=== PATIENT | female | born 2000 | race Caucasian/White ===

== ENCOUNTER 2022-11-01 10:24 | Inpatient (IN) ==
[2022-11-01] MEDS ORDERED: LIDOCAINE 1% LOCAL 20 ML VIAL INFIL PRN (10:31)
[2022-11-01] MEDS ORDERED: OXYTOCIN 30 UNITS/500 ML BAG IV PRN (10:31)
--- NOTE | 2022-11-01 10:39 | History & Physical Report ---
Date of Service November 01, 2022 Assessment & Plan Admission and Anticipated Discharge Date Admission Date: November 01, 2022 History of Present Illness Chief Complaint: induction of labor Primary Care Provider: NO PCP 22 F P0000 at 40+ weeks admitted for induction of labor. GBS is negative. Covid is pending. Allergies Allergy/AdvReac Type Severity Reaction Status Date / Time No Known Allergies Allergy Unverified 11/01/22 10:29 Home Medications Medication Instructions Recorded Confirmed Type 1 tab PO DAILY 11/01/22 11/01/22 History Patient History Medical History No known health problems Surgical History No history of previous surgery OB History primip [employer]SPORTATION [employer] History neg Review of Systems All systems reviewed & are unremarkable except as noted in HPI & below Physical Exam Constitutional: WD/WN, vitals as above Eyes: PERRL, conjunctivae normal, anicteric sclerae Respiratory: normal respiratory effort, lungs clear to auscultation Cardiovascular: RRR, no murmur, no edema Gastrointestinal (Abdomen): Inspection/Auscultation: abdomen normal to inspection Musculoskeletal: Extremities: extremities normal to inspection Skin: no rashes, warm and dry Neurologic: patellar DTR's 2+ bilat, sensation intact Psychiatric: A+Ox3, euthymic affect Genitourinary: OB Exam Monitor Tracing: + external FHT monitor used, + external uterine monitor used, + category I and + normal FHT variability Code Status & VTE Plan VTE Prophylaxis Plan VTE Prophylaxis will be ordered: No Monitoring External Monitor Cat 1
[2022-11-01] MEDS ORDERED: SODIUM CHLORIDE 0.9% 250 ML IV PRN (11:28)
[2022-11-01 11:49] LABS: Hematocrit (blood only) 35.5 % (37.0-47.0); Hemoglobin 12.5 g/dl (12.0-16.0); Mean Corpuscular Hemoglobin 30.4 pg (25.0-34.0); Mean Corpuscular Hgb Conc 35.2 g/dL (32.0-36.0); Mean Corpuscular Volume 86.4 fL (80.0-100.0); Mean Platelet Volume 11.4 fL (9.4-12.4); Platelet Count 178 K/uL (130-400); RDW Coefficient of Variation 13.3 % (11.5-14.5); RDW Standard Deviation 41.3 fL (36.4-46.3); Red Blood Count 4.11 M/uL (4.20-5.40); White Blood Count 13.21 K/ul (4.8-10.8)
[2022-11-01] MEDS ORDERED: DINOPROSTONE 10 MG INSERT PV ONE (11:58)
--- NOTE | 2022-11-01 11:58 | Labor Progress Brief Note ---
Date of Service November 01, 2022 Assessment & Plan Admission and Anticipated Discharge Date Admission Date: November 01, 2022 Physical Exam Genitourinary: Manual OB Exam: + cervical dilation fingertip, + cervical effacement 50% and + station high OB Exam Monitor Tracing: + external FHT monitor used, + external uterine monitor used, + category I and + normal FHT variability will plan for Cervidil for cervical ripening. Results & Data Vital Signs (Past 12 Hours) Vital Signs Temp Resp 11/01/22 10:35 37.3 C 20
--- NOTE | 2022-11-01 14:18 | Labor Progress Brief Note ---
Date of Service November 01, 2022 Assessment & Plan Admission and Anticipated Discharge Date Admission Date: November 01, 2022 Physical Exam Genitourinary: Manual OB Exam: + cervical dilation fingertip, + cervical effacement 50% and + station high Cervidil 10 mg placed Results & Data Vital Signs (Past 12 Hours) Vital Signs Temp Resp 11/01/22 10:35 37.3 C 20
[2022-11-01] MEDS ORDERED: BUTORPHANOL TARTRATE 1 MG/ML VIAL IV PRN (20:48)
[2022-11-02] MEDS ORDERED: miSOPROStoL 50 MCG TAB PO ONE (04:00)
[2022-11-02] MEDS ORDERED: FLUCONAZOLE 50 MG TAB PO ONE (07:54)
--- NOTE | 2022-11-02 08:07 | Obstetrical Progress Note ---
Date of Service November 02, 2022 Assessment & Plan Admission and Anticipated Discharge Date Admission Date: November 01, 2022 Subjective Patient is seen and examined IOL since yesterday for postdates Reviewed her PMH with her VE: 1/ 50%/ -3, s/p 1 Cervidil, ordered PO cytotec Bed side US: vertex, EFW 3300 gr FHR categ I No ctxs on monitor Discussed Ram bulb mechanical IOL and she accepted She was placed on Lithotomy position Cervix was cleaned with Betadine Ram was inserted, inflated with 40 ml sterile water, Attached to her medial thigh Continue to monitor closely Results & Data Vital Signs (Past 12 Hours) Vital Signs Temp Pulse Resp BP O2 Del Method 11/02/22 07:18 36.9 C 16 11/02/22 07:18 Room Air 11/02/22 07:14 75 132/87 11/02/22 04:02 37.0 C 69 18 137/80
[2022-11-02] MEDS ORDERED: OXYTOCIN 30 UNITS/500 ML BAG IV PRN (08:17)
[2022-11-02] MEDS: LACTATED RINGER'S 1,000 ML IV PRN ×4 (08:33→20:04)
[2022-11-02] MEDS ORDERED: ePHEDrine sulfate 50 MG/ML AMP ONE (14:50)
[2022-11-02] MEDS ORDERED: LIDOCAINE 2%/EPINEPHRINE 1:200,000 20 ML PF ONE (14:51)
[2022-11-02] MEDS ORDERED: fentaNYL citrate PF 100 MCG/2 ML VIAL ONE (14:51)
[2022-11-02] MEDS ORDERED: SODIUM CHLORIDE 0.9% PF INJ 10 ML VIAL ONE (14:51)
[2022-11-02] MEDS ORDERED: BUPIVACAINE 0.25% PF 30 ML VIAL ONE (14:51)
[2022-11-02] MEDS ORDERED: fentaNYL 2MCG/ML ROPIVACAINE 1.25MG/ML 100 ML BAG EPI ONE (14:52)
--- NOTE | 2022-11-02 16:39 | Obstetrical Progress Note ---
Date of Service November 02, 2022 Assessment & Plan Admission and Anticipated Discharge Date Admission Date: November 01, 2022 Subjective Patient is reevaluated. Ram came out at 1:30 PM, she received epidural for pain and comfortable now. heart rate category 1, Dent contractions every 2 to 3 minutes, Vaginal exam, cervix is 5 to 6 cm dilated, 70 to 80% effaced, large bulging bag, AROM, abundant clear fluid was obtained, head is at -1 station, Continue to monitor closely Results & Data Vital Signs (Past 12 Hours) Vital Signs Temp Pulse Resp BP Pulse Ox O2 Del Method 11/02/22 11:11 36.9 C 18 11/02/22 07:18 36.9 C 16 11/02/22 07:18 Room Air 11/02/22 16:33 82 98 11/02/22 16:28 83 98 11/02/22 15:05 36.9 C 11/02/22 16:23 71 98 11/02/22 16:18 96 H 99 11/02/22 16:15 99 H 131/71 11/02/22 16:13 81 98 11/02/22 16:11 90 140/79 11/02/22 16:00 18 11/02/22 16:00 18 11/02/22 16:08 88 98 11/02/22 16:06 85 134/80 11/02/22 16:03 85 98 11/02/22 16:01 88 144/73 H 11/02/22 15:58 86 98 11/02/22 15:55 92 H 144/67 H 11/02/22 15:53 98 11/02/22 15:53 89 11/02/22 15:53 90 139/73 11/02/22 15:51 87 140/71 11/02/22 15:49 93 H 155/81 H 11/02/22 15:48 92 H 97 11/02/22 15:47 85 139/66 11/02/22 15:45 83 142/68 H 11/02/22 15:43 96 11/02/22 15:43 85 11/02/22 15:43 85 152/75 H 11/02/22 15:41 90 155/82 H 11/02/22 15:38 86 98 11/02/22 15:39 83 157/93 H 11/02/22 15:37 82 146/73 H 11/02/22 15:33 79 98 11/02/22 15:28 82 98 11/02/22 15:23 82 97 11/02/22 15:18 84 99 11/02/22 15:13 86 97 11/02/22 15:00 20 11/02/22 15:00 20 11/02/22 15:11 81 93 11/02/22 15:08 78 98 11/02/22 15:03 78 98 11/02/22 14:58 78 99 11/02/22 14:55 75 139/63 11/02/22 14:53 70 98 11/02/22 14:54 75 137/82 11/02/22 14:30 18 11/02/22 14:30 18 11/02/22 14:48 81 98 11/02/22 14:00 16 11/02/22 14:00 16 11/02/22 13:30 16 11/02/22 13:30 16 11/02/22 13:00 20 11/02/22 13:00 20 11/02/22 13:54 70 130/60 11/02/22 12:54 70 143/71 H 11/02/22 12:31 18 11/02/22 12:31 18 11/02/22 12:01 18 11/02/22 12:01 18 11/02/22 11:54 80 134/76 11/02/22 10:01 18 11/02/22 10:01 18 11/02/22 10:31 16 11/02/22 10:31 16 11/02/22 11:31 18 11/02/22 11:31 18 11/02/22 10:54 78 128/90 11/02/22 09:56 74 136/87 11/02/22 08:53 69 144/80 H 11/02/22 07:14 75 132/87
--- NOTE | 2022-11-02 18:56 | Obstetrical Progress Note ---
Date of Service November 02, 2022 Assessment & Plan Admission and Anticipated Discharge Date Admission Date: November 01, 2022 Subjective Patient is reevaluated VE; 9/ 90%/ 0 FHR categ I Continue to monitor closely Anticipate Results & Data Vital Signs (Past 12 Hours) Vital Signs Temp Pulse Resp BP Pulse Ox O2 Del Method 11/02/22 11:11 36.9 C 18 11/02/22 07:18 36.9 C 16 11/02/22 07:18 Room Air 11/02/22 18:48 89 97 11/02/22 18:43 80 97 11/02/22 18:38 78 98 11/02/22 18:30 18 11/02/22 18:30 18 11/02/22 18:33 81 98 11/02/22 18:31 77 139/77 11/02/22 18:28 73 95 11/02/22 18:00 18 11/02/22 18:00 18 11/02/22 18:23 76 96 11/02/22 18:22 78 94 11/02/22 18:18 76 94 11/02/22 17:30 18 11/02/22 17:30 18 11/02/22 18:16 79 94 11/02/22 18:13 77 95 11/02/22 18:08 75 96 11/02/22 18:03 76 96 11/02/22 17:58 75 97 11/02/22 17:53 79 98 11/02/22 17:48 80 98 11/02/22 17:43 79 97 11/02/22 17:38 80 97 11/02/22 17:33 79 98 11/02/22 17:31 81 125/66 11/02/22 17:28 81 98 11/02/22 17:23 79 97 11/02/22 17:18 79 96 11/02/22 17:13 77 97 11/02/22 17:08 80 97 11/02/22 17:03 83 98 11/02/22 17:00 18 11/02/22 17:00 36.8 C 18 11/02/22 16:58 81 98 11/02/22 16:53 80 98 11/02/22 16:48 81 98 11/02/22 16:30 18 11/02/22 16:30 18 11/02/22 16:43 81 98 11/02/22 16:38 79 99 11/02/22 16:33 82 98 11/02/22 16:28 83 98 11/02/22 15:05 36.9 C 11/02/22 16:23 71 98 11/02/22 16:18 96 H 99 11/02/22 16:15 99 H 131/71 11/02/22 16:13 81 98 11/02/22 16:11 90 140/79 11/02/22 16:00 18 11/02/22 16:00 18 11/02/22 16:08 88 98 11/02/22 16:06 85 134/80 11/02/22 16:03 85 98 11/02/22 16:01 88 144/73 H 11/02/22 15:58 86 98 11/02/22 15:55 92 H 144/67 H 11/02/22 15:53 98 11/02/22 15:53 89 11/02/22 15:53 90 139/73 11/02/22 15:51 87 140/71 11/02/22 15:49 93 H 155/81 H 11/02/22 15:48 92 H 97 11/02/22 15:47 85 139/66 11/02/22 15:45 83 142/68 H 11/02/22 15:43 96 11/02/22 15:43 85 11/02/22 15:43 85 152/75 H 11/02/22 15:41 90 155/82 H 11/02/22 15:38 86 98 11/02/22 15:39 83 157/93 H 11/02/22 15:37 82 146/73 H 11/02/22 15:33 79 98 11/02/22 15:28 82 98 11/02/22 15:23 82 97 11/02/22 15:18 84 99 11/02/22 15:13 86 97 11/02/22 15:00 20 11/02/22 15:00 20 11/02/22 15:11 81 93 11/02/22 15:08 78 98 11/02/22 15:03 78 98 11/02/22 14:58 78 99 11/02/22 14:55 75 139/63 11/02/22 14:53 70 98 11/02/22 14:54 75 137/82 11/02/22 14:30 18 11/02/22 14:30 18 11/02/22 14:48 81 98 11/02/22 14:00 16 11/02/22 14:00 16 11/02/22 13:30 16 11/02/22 13:30 16 11/02/22 13:00 20 11/02/22 13:00 20 11/02/22 13:54 70 130/60 11/02/22 12:54 70 143/71 H 11/02/22 12:31 18 11/02/22 12:31 18 11/02/22 12:01 18 11/02/22 12:01 18 11/02/22 11:54 80 134/76 11/02/22 10:01 18 11/02/22 10:01 18 11/02/22 10:31 16 11/02/22 10:31 16 11/02/22 11:31 18 11/02/22 11:31 18 11/02/22 10:54 78 128/90 11/02/22 09:56 74 136/87 11/02/22 08:53 69 144/80 H 11/02/22 07:14 75 132/87
[2022-11-02] MEDS ORDERED: OR MISCELLANEOUS MED ONE (23:05)
--- NOTE | 2022-11-02 23:05 | Obstetrical Progress Note ---
Date of Service November 02, 2022 Assessment & Plan Admission and Anticipated Discharge Date Admission Date: November 01, 2022 Subjective Patient is reevaluated She does not feel any pain nor pressure FHR had been categ I VE: ant lip and very thin rim of cervix on right side, head is at +1 station, minimal change since last exam Increased pitocin to 16 miu/min Then FHR had deceleration to 100's for about 6 minutes despite lateral position change Oxytocin was stopped, IVF bolus started FHR came up to 130's Continue to monitor closely. Results & Data Vital Signs (Past 12 Hours) Vital Signs Temp Pulse Resp BP Pulse Ox 11/02/22 19:07 37.0 C 18 11/02/22 11:11 36.9 C 18 11/02/22 22:58 92 H 99 11/02/22 22:53 88 99 11/02/22 22:48 92 H 97 11/02/22 22:43 82 98 11/02/22 22:38 90 97 11/02/22 22:36 82 134/73 93 11/02/22 22:33 81 96 11/02/22 22:30 37.1 C 18 11/02/22 22:28 81 96 11/02/22 22:23 81 96 11/02/22 22:21 92 H 143/84 H 11/02/22 22:18 86 97 11/02/22 22:00 18 11/02/22 22:00 18 11/02/22 22:13 91 H 96 11/02/22 22:08 90 97 11/02/22 22:07 86 140/87 11/02/22 22:06 86 93 11/02/22 22:03 89 97 11/02/22 21:58 93 H 97 11/02/22 21:53 95 H 97 11/02/22 21:51 85 136/73 11/02/22 21:48 95 H 97 11/02/22 21:46 86 94 11/02/22 21:43 84 96 11/02/22 21:38 82 96 11/02/22 21:37 83 134/72 11/02/22 21:30 20 11/02/22 21:30 20 11/02/22 21:33 82 95 11/02/22 21:28 83 96 11/02/22 21:23 84 96 11/02/22 21:21 85 144/68 H 11/02/22 21:00 18 11/02/22 21:00 18 11/02/22 21:18 87 97 11/02/22 21:13 90 98 11/02/22 21:08 81 97 11/02/22 21:06 84 134/65 11/02/22 21:03 89 97 11/02/22 20:58 84 96 11/02/22 20:53 79 94 11/02/22 20:52 78 132/60 11/02/22 20:48 78 94 11/02/22 20:47 76 94 11/02/22 20:43 77 96 11/02/22 20:40 78 94 11/02/22 20:38 78 126/62 96 11/02/22 20:30 18 11/02/22 20:30 18 11/02/22 20:33 80 96 11/02/22 20:28 80 97 11/02/22 20:23 81 130/66 97 11/02/22 20:18 78 97 11/02/22 20:13 82 98 11/02/22 20:08 77 96 11/02/22 19:30 18 11/02/22 19:30 18 11/02/22 20:00 18 11/02/22 20:00 18 11/02/22 20:06 77 114/65 94 11/02/22 20:03 77 97 11/02/22 19:58 87 96 11/02/22 19:53 82 96 11/02/22 19:52 81 125/76 93 11/02/22 19:48 82 97 11/02/22 19:43 82 96 11/02/22 19:38 81 96 11/02/22 19:37 76 137/80 11/02/22 19:33 82 96 11/02/22 19:28 82 96 11/02/22 19:23 79 98 11/02/22 19:22 76 131/83 11/02/22 19:18 80 96 11/02/22 19:13 75 97 11/02/22 19:08 74 98 11/02/22 19:06 74 132/79 11/02/22 19:00 18 11/02/22 19:00 18 11/02/22 19:03 83 98 11/02/22 18:58 78 97 11/02/22 18:53 77 98 11/02/22 18:48 89 97 11/02/22 18:43 80 97 11/02/22 18:38 78 98 11/02/22 18:30 18 11/02/22 18:30 18 11/02/22 18:33 81 98 11/02/22 18:31 77 139/77 11/02/22 18:28 73 95 11/02/22 18:00 18 11/02/22 18:00 18 11/02/22 18:23 76 96 11/02/22 18:22 78 94 11/02/22 18:18 76 94 11/02/22 17:30 18 11/02/22 17:30 18 11/02/22 18:16 79 94 11/02/22 18:13 77 95 11/02/22 18:08 75 96 11/02/22 18:03 76 96 11/02/22 17:58 75 97 11/02/22 17:53 79 98 11/02/22 17:48 80 98 11/02/22 17:43 79 97 11/02/22 17:38 80 97 11/02/22 17:33 79 98 11/02/22 17:31 81 125/66 11/02/22 17:28 81 98 11/02/22 17:23 79 97 11/02/22 17:18 79 96 11/02/22 17:13 77 97 11/02/22 17:08 80 97 11/02/22 17:03 83 98 11/02/22 17:00 18 11/02/22 17:00 36.8 C 18 11/02/22 16:58 81 98 11/02/22 16:53 80 98 11/02/22 16:48 81 98 11/02/22 16:30 18 11/02/22 16:30 18 11/02/22 16:43 81 98 11/02/22 16:38 79 99 11/02/22 16:33 82 98 11/02/22 16:28 83 98 11/02/22 15:05 36.9 C 11/02/22 16:23 71 98 11/02/22 16:18 96 H 99 11/02/22 16:15 99 H 131/71 11/02/22 16:13 81 98 11/02/22 16:11 90 140/79 11/02/22 16:00 18 11/02/22 16:00 18 11/02/22 16:08 88 98 11/02/22 16:06 85 134/80 11/02/22 16:03 85 98 11/02/22 16:01 88 144/73 H 11/02/22 15:58 86 98 11/02/22 15:55 92 H 144/67 H 11/02/22 15:53 98 11/02/22 15:53 89 11/02/22 15:53 90 139/73 11/02/22 15:51 87 140/71 11/02/22 15:49 93 H 155/81 H 11/02/22 15:48 92 H 97 11/02/22 15:47 85 139/66 11/02/22 15:45 83 142/68 H 11/02/22 15:43 96 11/02/22 15:43 85 11/02/22 15:43 85 152/75 H 11/02/22 15:41 90 155/82 H 11/02/22 15:38 86 98 11/02/22 15:39 83 157/93 H 11/02/22 15:37 82 146/73 H 11/02/22 15:33 79 98 11/02/22 15:28 82 98 11/02/22 15:23 82 97 11/02/22 15:18 84 99 11/02/22 15:13 86 97 11/02/22 15:00 20 11/02/22 15:00 20 11/02/22 15:11 81 93 11/02/22 15:08 78 98 11/02/22 15:03 78 98 11/02/22 14:58 78 99 11/02/22 14:55 75 139/63 11/02/22 14:53 70 98 11/02/22 14:54 75 137/82 11/02/22 14:30 18 11/02/22 14:30 18 11/02/22 14:48 81 98 11/02/22 14:00 16 11/02/22 14:00 16 11/02/22 13:30 16 11/02/22 13:30 16 11/02/22 13:00 20 11/02/22 13:00 20 11/02/22 13:54 70 130/60 11/02/22 12:54 70 143/71 H 11/02/22 12:31 18 11/02/22 12:31 18 11/02/22 12:01 18 11/02/22 12:01 18 11/02/22 11:54 80 134/76 11/02/22 11:31 18 11/02/22 11:31 18
[2022-11-02] MEDS ORDERED: ePHEDrine sulfate 50 MG/ML AMP IV PRN (23:23)
[2022-11-02] MEDS ORDERED: NALOXONE HCL 0.4 MG/1 ML VIAL/CARP IV PRN (23:23)
[2022-11-02] MEDS ORDERED: NALOXONE HCL 1 MG in SODIUM CHLORIDE 0.9% 1000ML 1,000 ML IV PRN (23:23)
[2022-11-02] MEDS ORDERED: ONDANSETRON INJ 2 MG/ML 2 ML VIAL IV PRN (23:23)
[2022-11-02] MEDS ORDERED: NALBUPHINE HCL INJ 10 MG/ML AMP IV PRN (23:23)
[2022-11-02] MEDS ORDERED: diphenhydrAMINE 50 MG/ML VIAL IV PRN (23:23)
--- NOTE | 2022-11-02 23:27 | Anesthesiology Consultation ---
Date of Service November 02, 2022 Assessment & Plan Chart Review Chart Review: Patient NOT seen in Pre Admission Testing and Acceptable Risk for Labor Epidural Consults Requested none ASA ASA2 Proposed Anesthesia Anesthesia Type: Labor Epidural Risk / Benefits Reviewed With: PT / POA / Parent / Guardian, Accepts Plan and Informed Consent Obtained History Height/Weight Height: 5 ft 2 in Weight: 98.43 kg Allergies Allergy/AdvReac Type Severity Reaction Status Date / Time No Known Allergies Allergy Unverified 11/01/22 10:29 Medications Home Medications Medication Instructions Recorded Confirmed Last Taken 1 tab PO DAILY 11/01/22 11/01/22 10/31/22 20:00 Active Medications Generic Name Dose Route Start Last Admin Trade Name Freq PRN Reason Stop Dose Admin Butorphanol Tartrate 1 mg 11/01/22 20:48 11/02/22 13:41 Butorphanol Tartrate 1 Mg/Ml Vial IV 12/01/22 20:47 1 mg Q2R PRN Administration Pain Lactated Ringer's 1,000 mls @ 125 mls/hr 11/01/22 10:31 11/02/22 20:04 Lr IV 11/03/22 10:30 150 mls/hr .Q8H PRN Administration L&D Protocol Protocol Oxytocin 30 units in 500 mls @ 8 mls/hr 11/02/22 08:17 11/02/22 23:12 Pitocin IV 11/04/22 08:16 0.48 units/hr .Q24H PRN 8 mls/hr Labor Induction/Augmentation Titration Protocol 0.48 UNITS/HR Past Medical History Medical History No known health problems Exercise / Class Metabolic Activity II 4-5 Yardwork/Stairs/Walk up hill Past Surgical History Surgical History No history of previous surgery Past Anesthesia History No Hx of Anesthesia Complications and No Family Hx of Anesthesia Complications History of PONV No Hx of PONV and No Hx of Motion Sickness Social History Smoking Status: Current every day smoker tobacco type: cigarettes Smoking cigarettes per day: 8 STICKS OF CIGARETTES PER DAY. Do You Dip or Chew Tobacco: No Hx Alcohol Use: No Hx Substance Use: No substance use type: does not use Physical Exam Vital Signs Last Vital Signs Temp 37.1 C 11/02/22 22:30 Pulse 90 11/02/22 23:23 Resp 20 11/02/22 23:00 BP 138/73 11/02/22 23:21 Pulse Ox 97 11/02/22 23:23 O2 Del Method Room Air 11/02/22 07:18 ENMT Mouth: no dentition abnormality Thyromental Distance: > or= 3.5 Finger Breadths Mallampati Class: II Neck normal visual inspection Respiratory normal respiratory effort Auscultation: lungs clear to auscultation bilaterally Cardiovascular Rate/Rhythm: regular rate and regular rhythm Psychiatric Orientation: alert Testing Laboratory Results 11/01/22 11:15 Blood Type A Positive 11/01/22 11:15 Antibody Screen NEGATIVE 11/01/22 11:15
[2022-11-03] MEDS: fentaNYL 2MCG/ML ROPIVACAINE 1.25MG/ML 100 ML BAG EPI PRN ×2 (00:06→09:42)
[2022-11-03] MEDS ORDERED: MINERAL OIL 30 ML UDC ONE (01:27)
--- NOTE | 2022-11-03 01:44 | Obstetrical Progress Note ---
Date of Service November 03, 2022 Assessment & Plan Admission and Anticipated Discharge Date Admission Date: November 01, 2022 Subjective FHR was categ I and Oxytocin was started She started to feel pressure and some pain with contractions Contractions were spaced out earlier and now more regular every 2-3 min Has been pushing with good efforts Head is at +2 station, unable to tell OP or now Continue to monitor closely and pushing. Results & Data Vital Signs (Past 12 Hours) Vital Signs Temp Pulse Resp BP Pulse Ox 11/02/22 19:07 37.0 C 18 11/03/22 01:39 99 H 97 11/03/22 01:34 96 H 97 11/03/22 01:29 118 H 98 11/03/22 01:24 131 H 96 11/03/22 01:19 96 H 97 11/03/22 01:14 102 H 98 11/03/22 01:09 105 H 97 11/03/22 01:04 114 H 98 11/03/22 00:59 116 H 98 11/03/22 00:54 104 H 97 11/03/22 00:51 111 H 123/72 11/03/22 00:48 101 H 97 11/03/22 00:43 99 H 98 11/03/22 00:38 91 H 97 11/03/22 00:37 83 132/85 11/03/22 00:33 95 H 98 11/03/22 00:28 111 H 98 11/03/22 00:23 87 97 11/03/22 00:22 94 H 133/75 11/03/22 00:18 94 H 97 11/03/22 00:13 89 96 11/03/22 00:08 93 H 96 11/03/22 00:06 91 H 147/80 H 11/03/22 00:03 94 H 97 11/02/22 23:58 89 96 11/02/22 23:53 95 H 97 11/02/22 23:51 95 H 136/81 11/02/22 23:48 88 96 11/02/22 23:43 96 H 96 11/02/22 23:38 93 H 97 11/02/22 23:37 92 H 140/83 94 11/02/22 23:33 92 H 96 11/02/22 23:28 98 H 97 11/02/22 23:23 90 97 11/02/22 23:21 88 138/73 11/02/22 23:18 87 97 11/02/22 23:00 20 11/02/22 23:00 20 11/02/22 23:13 91 H 97 11/02/22 23:08 84 99 11/02/22 23:06 85 131/73 11/02/22 23:03 84 99 11/02/22 22:58 92 H 99 11/02/22 22:53 88 99 11/02/22 22:48 92 H 97 11/02/22 22:43 82 98 11/02/22 22:38 90 97 11/02/22 22:36 82 134/73 93 11/02/22 22:33 81 96 11/02/22 22:30 37.1 C 18 11/02/22 22:28 81 96 11/02/22 22:23 81 96 11/02/22 22:21 92 H 143/84 H 11/02/22 22:18 86 97 11/02/22 22:00 18 11/02/22 22:00 18 11/02/22 22:13 91 H 96 11/02/22 22:08 90 97 11/02/22 22:07 86 140/87 11/02/22 22:06 86 93 11/02/22 22:03 89 97 11/02/22 21:58 93 H 97 11/02/22 21:53 95 H 97 11/02/22 21:51 85 136/73 11/02/22 21:48 95 H 97 11/02/22 21:46 86 94 11/02/22 21:43 84 96 11/02/22 21:38 82 96 11/02/22 21:37 83 134/72 11/02/22 21:30 20 11/02/22 21:30 20 11/02/22 21:33 82 95 11/02/22 21:28 83 96 11/02/22 21:23 84 96 11/02/22 21:21 85 144/68 H 11/02/22 21:00 18 11/02/22 21:00 18 11/02/22 21:18 87 97 11/02/22 21:13 90 98 11/02/22 21:08 81 97 11/02/22 21:06 84 134/65 11/02/22 21:03 89 97 11/02/22 20:58 84 96 11/02/22 20:53 79 94 11/02/22 20:52 78 132/60 11/02/22 20:48 78 94 11/02/22 20:47 76 94 11/02/22 20:43 77 96 11/02/22 20:40 78 94 11/02/22 20:38 78 126/62 96 11/02/22 20:30 18 11/02/22 20:30 18 11/02/22 20:33 80 96 11/02/22 20:28 80 97 11/02/22 20:23 81 130/66 97 11/02/22 20:18 78 97 11/02/22 20:13 82 98 11/02/22 20:08 77 96 11/02/22 19:30 18 11/02/22 19:30 18 11/02/22 20:00 18 11/02/22 20:00 18 11/02/22 20:06 77 114/65 94 11/02/22 20:03 77 97 11/02/22 19:58 87 96 11/02/22 19:53 82 96 11/02/22 19:52 81 125/76 93 11/02/22 19:48 82 97 11/02/22 19:43 82 96 11/02/22 19:38 81 96 11/02/22 19:37 76 137/80 11/02/22 19:33 82 96 11/02/22 19:28 82 96 11/02/22 19:23 79 98 11/02/22 19:22 76 131/83 11/02/22 19:18 80 96 11/02/22 19:13 75 97 11/02/22 19:08 74 98 11/02/22 19:06 74 132/79 11/02/22 19:00 18 11/02/22 19:00 18 11/02/22 19:03 83 98 11/02/22 18:58 78 97 11/02/22 18:53 77 98 11/02/22 18:48 89 97 11/02/22 18:43 80 97 11/02/22 18:38 78 98 11/02/22 18:30 18 11/02/22 18:30 18 11/02/22 18:33 81 98 11/02/22 18:31 77 139/77 11/02/22 18:28 73 95 11/02/22 18:00 18 11/02/22 18:00 18 11/02/22 18:23 76 96 11/02/22 18:22 78 94 11/02/22 18:18 76 94 11/02/22 17:30 18 11/02/22 17:30 18 11/02/22 18:16 79 94 11/02/22 18:13 77 95 11/02/22 18:08 75 96 11/02/22 18:03 76 96 11/02/22 17:58 75 97 11/02/22 17:53 79 98 11/02/22 17:48 80 98 11/02/22 17:43 79 97 11/02/22 17:38 80 97 11/02/22 17:33 79 98 11/02/22 17:31 81 125/66 11/02/22 17:28 81 98 11/02/22 17:23 79 97 11/02/22 17:18 79 96 11/02/22 17:13 77 97 11/02/22 17:08 80 97 11/02/22 17:03 83 98 11/02/22 17:00 18 11/02/22 17:00 36.8 C 18 11/02/22 16:58 81 98 11/02/22 16:53 80 98 11/02/22 16:48 81 98 11/02/22 16:30 18 11/02/22 16:30 18 11/02/22 16:43 81 98 11/02/22 16:38 79 99 11/02/22 16:33 82 98 11/02/22 16:28 83 98 11/02/22 15:05 36.9 C 11/02/22 16:23 71 98 11/02/22 16:18 96 H 99 11/02/22 16:15 99 H 131/71 11/02/22 16:13 81 98 11/02/22 16:11 90 140/79 11/02/22 16:00 18 11/02/22 16:00 18 11/02/22 16:08 88 98 11/02/22 16:06 85 134/80 11/02/22 16:03 85 98 11/02/22 16:01 88 144/73 H 11/02/22 15:58 86 98 11/02/22 15:55 92 H 144/67 H 11/02/22 15:53 98 11/02/22 15:53 89 11/02/22 15:53 90 139/73 11/02/22 15:51 87 140/71 11/02/22 15:49 93 H 155/81 H 11/02/22 15:48 92 H 97 11/02/22 15:47 85 139/66 11/02/22 15:45 83 142/68 H 11/02/22 15:43 96 11/02/22 15:43 85 11/02/22 15:43 85 152/75 H 11/02/22 15:41 90 155/82 H 11/02/22 15:38 86 98 11/02/22 15:39 83 157/93 H 11/02/22 15:37 82 146/73 H 11/02/22 15:33 79 98 11/02/22 15:28 82 98 11/02/22 15:23 82 97 11/02/22 15:18 84 99 11/02/22 15:13 86 97 11/02/22 15:00 20 11/02/22 15:00 20 11/02/22 15:11 81 93 11/02/22 15:08 78 98 11/02/22 15:03 78 98 11/02/22 14:58 78 99 11/02/22 14:55 75 139/63 11/02/22 14:53 70 98 11/02/22 14:54 75 137/82 11/02/22 14:30 18 11/02/22 14:30 18 11/02/22 14:48 81 98 11/02/22 14:00 16 11/02/22 14:00 16 11/02/22 13:54 70 130/60
--- NOTE | 2022-11-03 02:28 | Obstetrical Progress Note ---
Date of Service November 03, 2022 Assessment & Plan Admission and Anticipated Discharge Date Admission Date: November 01, 2022 Subjective Patient is resting now, wanted to stop and take a nap and labor down. FHR categ I Continue to monitor closely Results & Data Vital Signs (Past 12 Hours) Vital Signs Temp Pulse Resp BP Pulse Ox 11/02/22 19:07 37.0 C 18 11/03/22 02:27 96 H 150/72 H 11/03/22 02:24 93 H 98 11/03/22 02:19 93 H 95 11/03/22 02:14 91 H 95 11/03/22 02:12 86 131/62 11/03/22 02:09 90 97 11/03/22 02:04 91 H 99 11/03/22 01:59 90 96 11/03/22 01:54 93 H 95 11/03/22 01:53 107 H 84 L 11/03/22 01:49 91 H 96 11/03/22 01:44 89 96 11/03/22 01:39 99 H 97 11/03/22 01:34 96 H 97 11/03/22 01:29 118 H 98 11/03/22 01:24 131 H 96 11/03/22 01:19 96 H 97 11/03/22 01:14 102 H 98 11/03/22 01:09 105 H 97 11/03/22 01:04 114 H 98 11/03/22 00:59 116 H 98 11/03/22 00:54 104 H 97 11/03/22 00:51 111 H 123/72 11/03/22 00:48 101 H 97 11/03/22 00:43 99 H 98 11/03/22 00:38 91 H 97 11/03/22 00:37 83 132/85 11/03/22 00:33 95 H 98 11/03/22 00:28 111 H 98 11/03/22 00:23 87 97 11/03/22 00:22 94 H 133/75 11/03/22 00:18 94 H 97 11/03/22 00:13 89 96 11/03/22 00:08 93 H 96 11/03/22 00:06 91 H 147/80 H 11/03/22 00:03 94 H 97 11/02/22 23:58 89 96 11/02/22 23:53 95 H 97 11/02/22 23:51 95 H 136/81 11/02/22 23:48 88 96 11/02/22 23:43 96 H 96 11/02/22 23:38 93 H 97 11/02/22 23:37 92 H 140/83 94 11/02/22 23:33 92 H 96 11/02/22 23:28 98 H 97 11/02/22 23:23 90 97 11/02/22 23:21 88 138/73 11/02/22 23:18 87 97 11/02/22 23:00 20 11/02/22 23:00 20 11/02/22 23:13 91 H 97 11/02/22 23:08 84 99 11/02/22 23:06 85 131/73 11/02/22 23:03 84 99 11/02/22 22:58 92 H 99 11/02/22 22:53 88 99 11/02/22 22:48 92 H 97 11/02/22 22:43 82 98 11/02/22 22:38 90 97 11/02/22 22:36 82 134/73 93 11/02/22 22:33 81 96 11/02/22 22:30 37.1 C 18 11/02/22 22:28 81 96 11/02/22 22:23 81 96 11/02/22 22:21 92 H 143/84 H 11/02/22 22:18 86 97 11/02/22 22:00 18 11/02/22 22:00 18 11/02/22 22:13 91 H 96 11/02/22 22:08 90 97 11/02/22 22:07 86 140/87 11/02/22 22:06 86 93 11/02/22 22:03 89 97 11/02/22 21:58 93 H 97 11/02/22 21:53 95 H 97 11/02/22 21:51 85 136/73 11/02/22 21:48 95 H 97 11/02/22 21:46 86 94 11/02/22 21:43 84 96 11/02/22 21:38 82 96 11/02/22 21:37 83 134/72 11/02/22 21:30 20 11/02/22 21:30 20 11/02/22 21:33 82 95 11/02/22 21:28 83 96 11/02/22 21:23 84 96 11/02/22 21:21 85 144/68 H 11/02/22 21:00 18 11/02/22 21:00 18 11/02/22 21:18 87 97 11/02/22 21:13 90 98 11/02/22 21:08 81 97 11/02/22 21:06 84 134/65 11/02/22 21:03 89 97 11/02/22 20:58 84 96 11/02/22 20:53 79 94 11/02/22 20:52 78 132/60 11/02/22 20:48 78 94 11/02/22 20:47 76 94 11/02/22 20:43 77 96 11/02/22 20:40 78 94 11/02/22 20:38 78 126/62 96 11/02/22 20:30 18 11/02/22 20:30 18 11/02/22 20:33 80 96 11/02/22 20:28 80 97 11/02/22 20:23 81 130/66 97 11/02/22 20:18 78 97 11/02/22 20:13 82 98 11/02/22 20:08 77 96 11/02/22 19:30 18 11/02/22 19:30 18 11/02/22 20:00 18 11/02/22 20:00 18 11/02/22 20:06 77 114/65 94 11/02/22 20:03 77 97 11/02/22 19:58 87 96 11/02/22 19:53 82 96 11/02/22 19:52 81 125/76 93 11/02/22 19:48 82 97 11/02/22 19:43 82 96 11/02/22 19:38 81 96 11/02/22 19:37 76 137/80 11/02/22 19:33 82 96 11/02/22 19:28 82 96 11/02/22 19:23 79 98 11/02/22 19:22 76 131/83 11/02/22 19:18 80 96 11/02/22 19:13 75 97 11/02/22 19:08 74 98 11/02/22 19:06 74 132/79 11/02/22 19:00 18 11/02/22 19:00 18 11/02/22 19:03 83 98 11/02/22 18:58 78 97 11/02/22 18:53 77 98 11/02/22 18:48 89 97 11/02/22 18:43 80 97 11/02/22 18:38 78 98 11/02/22 18:30 18 11/02/22 18:30 18 11/02/22 18:33 81 98 11/02/22 18:31 77 139/77 11/02/22 18:28 73 95 11/02/22 18:00 18 11/02/22 18:00 18 11/02/22 18:23 76 96 11/02/22 18:22 78 94 11/02/22 18:18 76 94 11/02/22 17:30 18 11/02/22 17:30 18 11/02/22 18:16 79 94 11/02/22 18:13 77 95 11/02/22 18:08 75 96 11/02/22 18:03 76 96 11/02/22 17:58 75 97 11/02/22 17:53 79 98 11/02/22 17:48 80 98 11/02/22 17:43 79 97 11/02/22 17:38 80 97 11/02/22 17:33 79 98 11/02/22 17:31 81 125/66 11/02/22 17:28 81 98 11/02/22 17:23 79 97 11/02/22 17:18 79 96 11/02/22 17:13 77 97 11/02/22 17:08 80 97 11/02/22 17:03 83 98 11/02/22 17:00 18 11/02/22 17:00 36.8 C 18 11/02/22 16:58 81 98 11/02/22 16:53 80 98 11/02/22 16:48 81 98 11/02/22 16:30 18 11/02/22 16:30 18 11/02/22 16:43 81 98 11/02/22 16:38 79 99 11/02/22 16:33 82 98 11/02/22 16:28 83 98 11/02/22 15:05 36.9 C 11/02/22 16:23 71 98 11/02/22 16:18 96 H 99 11/02/22 16:15 99 H 131/71 11/02/22 16:13 81 98 11/02/22 16:11 90 140/79 11/02/22 16:00 18 11/02/22 16:00 18 11/02/22 16:08 88 98 11/02/22 16:06 85 134/80 11/02/22 16:03 85 98 11/02/22 16:01 88 144/73 H 11/02/22 15:58 86 98 11/02/22 15:55 92 H 144/67 H 11/02/22 15:53 98 11/02/22 15:53 89 11/02/22 15:53 90 139/73 11/02/22 15:51 87 140/71 11/02/22 15:49 93 H 155/81 H 11/02/22 15:48 92 H 97 11/02/22 15:47 85 139/66 11/02/22 15:45 83 142/68 H 11/02/22 15:43 96 11/02/22 15:43 85 11/02/22 15:43 85 152/75 H 11/02/22 15:41 90 155/82 H 11/02/22 15:38 86 98 11/02/22 15:39 83 157/93 H 11/02/22 15:37 82 146/73 H 11/02/22 15:33 79 98 11/02/22 15:28 82 98 11/02/22 15:23 82 97 11/02/22 15:18 84 99 11/02/22 15:13 86 97 11/02/22 15:00 20 11/02/22 15:00 20 11/02/22 15:11 81 93 11/02/22 15:08 78 98 11/02/22 15:03 78 98 11/02/22 14:58 78 99 11/02/22 14:55 75 139/63 11/02/22 14:53 70 98 11/02/22 14:54 75 137/82 11/02/22 14:30 18 11/02/22 14:30 18 11/02/22 14:48 81 98
[2022-11-03] MEDS: LACTATED RINGER'S 1,000 ML IV PRN ×2 (02:45→08:33)
--- NOTE | 2022-11-03 07:59 | Obstetrical Progress Note ---
Date of Service November 03, 2022 Assessment & Plan Admission and Anticipated Discharge Date Admission Date: November 01, 2022 Subjective Patient pushed for about an hour and then rested and slept until 4:50 when she started to push again Has been pushing since then. Head feels lower, +3 but with caput succanedeum FHR had been categ I She wants to rest again for few minutes Continue to monitor closey Results & Data Vital Signs (Past 12 Hours) Vital Signs Temp Pulse Resp BP Pulse Ox 11/03/22 07:54 86 98 11/03/22 07:49 101 H 98 11/03/22 07:44 98 11/03/22 07:44 80 11/03/22 07:44 80 127/60 11/03/22 07:15 26 H 11/03/22 07:15 36.8 C 26 H 11/03/22 07:39 82 97 11/03/22 07:34 85 97 11/03/22 07:29 79 98 11/03/22 07:28 78 137/65 11/03/22 07:24 79 97 11/03/22 07:19 79 97 11/03/22 07:14 79 97 11/03/22 07:12 81 131/75 11/03/22 07:09 79 96 11/03/22 07:04 76 96 11/03/22 06:59 79 97 11/03/22 06:54 82 98 11/03/22 06:49 84 99 11/03/22 06:45 18 11/03/22 06:45 18 11/03/22 06:44 84 98 11/03/22 06:42 77 129/65 11/03/22 06:39 84 96 11/03/22 06:34 79 94 11/03/22 06:29 93 H 97 11/03/22 06:28 83 134/73 11/03/22 06:24 84 97 11/03/22 06:19 89 98 11/03/22 06:14 86 96 11/03/22 06:12 84 114/61 11/03/22 06:09 84 96 11/03/22 06:04 88 96 11/03/22 05:59 85 96 11/03/22 05:54 92 H 98 11/03/22 05:49 92 H 94 11/03/22 05:44 100 H 97 11/03/22 05:43 80 119/59 L 11/03/22 05:39 85 96 11/03/22 05:37 85 88 L 11/03/22 05:34 80 96 11/03/22 05:29 86 97 11/03/22 05:28 86 132/60 11/03/22 05:24 86 98 11/03/22 05:19 114 H 96 11/03/22 05:14 100 H 98 11/03/22 05:09 89 98 11/03/22 05:04 93 H 98 11/03/22 04:59 84 97 11/03/22 04:54 83 97 11/03/22 04:49 87 97 11/03/22 04:44 91 H 97 11/03/22 04:42 88 154/90 H 11/03/22 04:39 86 96 11/03/22 04:34 82 97 11/03/22 04:29 94 H 99 11/03/22 04:27 92 H 148/84 H 11/03/22 04:24 85 95 11/03/22 04:19 89 98 11/03/22 04:14 88 96 11/03/22 04:13 86 131/73 11/03/22 04:09 89 96 11/03/22 04:04 95 H 97 11/03/22 03:59 86 96 11/03/22 03:58 83 139/66 11/03/22 03:54 91 H 95 11/03/22 03:49 90 96 11/03/22 03:44 94 H 96 11/03/22 03:42 85 130/63 11/03/22 03:39 85 95 11/03/22 03:34 87 94 11/03/22 03:29 82 95 11/03/22 03:27 82 128/59 L 11/03/22 03:24 84 95 11/03/22 03:19 81 95 11/03/22 03:14 82 96 11/03/22 03:12 90 116/75 11/03/22 03:09 84 96 11/03/22 03:04 84 97 11/03/22 02:59 82 96 11/03/22 02:57 78 112/62 11/03/22 02:54 84 96 11/03/22 02:49 83 97 11/03/22 02:48 82 127/61 11/03/22 02:44 87 98 11/03/22 02:43 87 195/93 H 11/03/22 02:39 99 H 97 11/03/22 02:34 99 H 96 11/03/22 02:29 94 H 97 11/03/22 02:27 96 H 150/72 H 11/03/22 02:24 93 H 98 11/03/22 02:19 93 H 95 11/03/22 02:14 91 H 95 11/03/22 02:12 86 131/62 11/03/22 02:09 90 97 11/03/22 02:04 91 H 99 11/03/22 01:59 90 96 11/03/22 01:54 93 H 95 11/03/22 01:53 107 H 84 L 11/03/22 01:49 91 H 96 11/03/22 01:44 89 96 11/03/22 01:39 99 H 97 11/03/22 01:34 96 H 97 11/03/22 01:29 118 H 98 11/03/22 01:24 131 H 96 11/03/22 01:19 96 H 97 11/03/22 01:14 102 H 98 11/03/22 01:09 105 H 97 11/03/22 01:04 114 H 98 11/03/22 00:59 116 H 98 11/03/22 00:54 104 H 97 11/03/22 00:51 111 H 123/72 11/03/22 00:48 101 H 97 11/03/22 00:43 99 H 98 11/03/22 00:38 91 H 97 11/03/22 00:37 83 132/85 11/03/22 00:33 95 H 98 11/03/22 00:28 111 H 98 11/03/22 00:23 87 97 11/03/22 00:22 94 H 133/75 11/03/22 00:18 94 H 97 11/03/22 00:13 89 96 11/03/22 00:08 93 H 96 11/03/22 00:06 91 H 147/80 H 11/03/22 00:03 94 H 97 11/02/22 23:58 89 96 11/02/22 23:53 95 H 97 11/02/22 23:51 95 H 136/81 11/02/22 23:48 88 96 11/02/22 23:43 96 H 96 11/02/22 23:38 93 H 97 11/02/22 23:37 92 H 140/83 94 11/02/22 23:33 92 H 96 11/02/22 23:28 98 H 97 11/02/22 23:23 90 97 11/02/22 23:21 88 138/73 11/02/22 23:18 87 97 11/02/22 23:00 20 11/02/22 23:00 20 11/02/22 23:13 91 H 97 11/02/22 23:08 84 99 11/02/22 23:06 85 131/73 11/02/22 23:03 84 99 11/02/22 22:58 92 H 99 11/02/22 22:53 88 99 11/02/22 22:48 92 H 97 11/02/22 22:43 82 98 11/02/22 22:38 90 97 11/02/22 22:36 82 134/73 93 11/02/22 22:33 81 96 11/02/22 22:30 37.1 C 18 11/02/22 22:28 81 96 11/02/22 22:23 81 96 11/02/22 22:21 92 H 143/84 H 11/02/22 22:18 86 97 11/02/22 22:00 18 11/02/22 22:00 18 11/02/22 22:13 91 H 96 11/02/22 22:08 90 97 11/02/22 22:07 86 140/87 11/02/22 22:06 86 93 11/02/22 22:03 89 97 11/02/22 21:58 93 H 97 11/02/22 21:53 95 H 97 11/02/22 21:51 85 136/73 11/02/22 21:48 95 H 97 11/02/22 21:46 86 94 11/02/22 21:43 84 96 11/02/22 21:38 82 96 11/02/22 21:37 83 134/72 11/02/22 21:30 20 11/02/22 21:30 20 11/02/22 21:33 82 95 11/02/22 21:28 83 96 04/12/23 21:23 84 96 11/02/22 21:21 85 144/68 H 11/02/22 21:00 18 11/02/22 21:00 18 11/02/22 21:18 87 97 11/02/22 21:13 90 98 11/02/22 21:08 81 97 11/02/22 21:06 84 134/65 11/02/22 21:03 89 97 11/02/22 20:58 84 96 11/02/22 20:53 79 94 11/02/22 20:52 78 132/60 11/02/22 20:48 78 94 11/02/22 20:47 76 94 11/02/22 20:43 77 96 11/02/22 20:40 78 94 11/02/22 20:38 78 126/62 96 11/02/22 20:30 18 11/02/22 20:30 18 11/02/22 20:33 80 96 11/02/22 20:28 80 97 11/02/22 20:23 81 130/66 97 11/02/22 20:18 78 97 11/02/22 20:13 82 98 11/02/22 20:08 77 96 11/02/22 20:00 18 11/02/22 20:00 18 11/02/22 20:06 77 114/65 94 11/02/22 20:03 77 97 11/02/22 19:58 87 96
[2022-11-03] MEDS ORDERED: GENTAMICIN CONSULT ACTIVE PRN (08:27)
[2022-11-03] MEDS ORDERED: LACTATED RINGER'S 1,000 ML IV SCH ×2 (08:30→13:15)
[2022-11-03] MEDS ORDERED: GENTAMICIN SULFATE 340 MG in DEXTROSE 5% 100 ML IV SCH (08:45)
[2022-11-03] MEDS ORDERED: ceFAZolin 2000MG 2,000 MG/15 ML SYR IV SCH (08:45)
[2022-11-03] MEDS ORDERED: CLINDAMYCIN/D5W 900 MG/50 ML BAG IV SCH (08:45)
--- NOTE | 2022-11-03 09:00 | Obstetrical Progress Note ---
Date of Service November 03, 2022 Assessment & Plan Admission and Anticipated Discharge Date Admission Date: November 01, 2022 Subjective Patient rested and now comfortable\ FHR categ I VSS Afebrile Discussed Primary Csection vs continue with pushing and she decided to continue with pushing Continue to monitor Results & Data Vital Signs (Past 12 Hours) Vital Signs Temp Pulse Resp BP Pulse Ox 11/03/22 08:57 85 119/58 L 11/03/22 08:54 36.9 C 89 97 11/03/22 08:49 82 97 11/03/22 08:44 80 97 11/03/22 08:42 80 120/74 11/03/22 08:39 84 98 11/03/22 08:34 83 98 11/03/22 08:29 80 95 11/03/22 08:28 76 129/61 11/03/22 08:24 76 96 11/03/22 08:19 79 95 11/03/22 08:14 82 96 11/03/22 08:13 73 130/64 11/03/22 08:09 77 97 11/03/22 08:04 77 97 11/03/22 07:59 78 95 11/03/22 07:57 89 128/74 11/03/22 07:54 86 98 11/03/22 07:49 101 H 98 11/03/22 07:44 98 11/03/22 07:44 80 11/03/22 07:44 80 127/60 11/03/22 07:15 26 H 11/03/22 07:15 36.8 C 26 H 11/03/22 07:39 82 97 11/03/22 07:34 85 97 11/03/22 07:29 79 98 11/03/22 07:28 78 137/65 11/03/22 07:24 79 97 11/03/22 07:19 79 97 11/03/22 07:14 79 97 11/03/22 07:12 81 131/75 11/03/22 07:09 79 96 11/03/22 07:04 76 96 11/03/22 06:59 79 97 11/03/22 06:54 82 98 11/03/22 06:49 84 99 11/03/22 06:45 18 11/03/22 06:45 18 11/03/22 06:44 84 98 11/03/22 06:42 77 129/65 11/03/22 06:39 84 96 11/03/22 06:34 79 94 11/03/22 06:29 93 H 97 11/03/22 06:28 83 134/73 11/03/22 06:24 84 97 11/03/22 06:19 89 98 11/03/22 06:14 86 96 11/03/22 06:12 84 114/61 11/03/22 06:09 84 96 11/03/22 06:04 88 96 11/03/22 05:59 85 96 11/03/22 05:54 92 H 98 11/03/22 05:49 92 H 94 11/03/22 05:44 100 H 97 11/03/22 05:43 80 119/59 L 11/03/22 05:39 85 96 11/03/22 05:37 85 88 L 11/03/22 05:34 80 96 11/03/22 05:29 86 97 11/03/22 05:28 86 132/60 11/03/22 05:24 86 98 11/03/22 05:19 114 H 96 11/03/22 05:14 100 H 98 11/03/22 05:09 89 98 11/03/22 05:04 93 H 98 11/03/22 04:59 84 97 11/03/22 04:54 83 97 11/03/22 04:49 87 97 11/03/22 04:44 91 H 97 11/03/22 04:42 88 154/90 H 11/03/22 04:39 86 96 11/03/22 04:34 82 97 11/03/22 04:29 94 H 99 11/03/22 04:27 92 H 148/84 H 11/03/22 04:24 85 95 11/03/22 04:19 89 98 11/03/22 04:14 88 96 11/03/22 04:13 86 131/73 11/03/22 04:09 89 96 11/03/22 04:04 95 H 97 11/03/22 03:59 86 96 11/03/22 03:58 83 139/66 11/03/22 03:54 91 H 95 11/03/22 03:49 90 96 11/03/22 03:44 94 H 96 11/03/22 03:42 85 130/63 11/03/22 03:39 85 95 11/03/22 03:34 87 94 11/03/22 03:29 82 95 11/03/22 03:27 82 128/59 L 11/03/22 03:24 84 95 11/03/22 03:19 81 95 11/03/22 03:14 82 96 11/03/22 03:12 90 116/75 11/03/22 03:09 84 96 11/03/22 03:04 84 97 11/03/22 02:59 82 96 11/03/22 02:57 78 112/62 11/03/22 02:54 84 96 11/03/22 02:49 83 97 11/03/22 02:48 82 127/61 11/03/22 02:44 87 98 11/03/22 02:43 87 195/93 H 11/03/22 02:39 99 H 97 11/03/22 02:34 99 H 96 11/03/22 02:29 94 H 97 11/03/22 02:27 96 H 150/72 H 11/03/22 02:24 93 H 98 11/03/22 02:19 93 H 95 11/03/22 02:14 91 H 95 11/03/22 02:12 86 131/62 11/03/22 02:09 90 97 11/03/22 02:04 91 H 99 11/03/22 01:59 90 96 11/03/22 01:54 93 H 95 11/03/22 01:53 107 H 84 L 11/03/22 01:49 91 H 96 11/03/22 01:44 89 96 11/03/22 01:39 99 H 97 11/03/22 01:34 96 H 97 11/03/22 01:29 118 H 98 11/03/22 01:24 131 H 96 11/03/22 01:19 96 H 97 11/03/22 01:14 102 H 98 11/03/22 01:09 105 H 97 11/03/22 01:04 114 H 98 11/03/22 00:59 116 H 98 11/03/22 00:54 104 H 97 11/03/22 00:51 111 H 123/72 11/03/22 00:48 101 H 97 11/03/22 00:43 99 H 98 11/03/22 00:38 91 H 97 11/03/22 00:37 83 132/85 11/03/22 00:33 95 H 98 11/03/22 00:28 111 H 98 11/03/22 00:23 87 97 11/03/22 00:22 94 H 133/75 11/03/22 00:18 94 H 97 11/03/22 00:13 89 96 11/03/22 00:08 93 H 96 11/03/22 00:06 91 H 147/80 H 11/03/22 00:03 94 H 97 11/02/22 23:58 89 96 11/02/22 23:53 95 H 97 11/02/22 23:51 95 H 136/81 11/02/22 23:48 88 96 11/02/22 23:43 96 H 96 11/02/22 23:38 93 H 97 11/02/22 23:37 92 H 140/83 94 11/02/22 23:33 92 H 96 11/02/22 23:28 98 H 97 11/02/22 23:23 90 97 11/02/22 23:21 88 138/73 11/02/22 23:18 87 97 11/02/22 23:00 20 11/02/22 23:00 20 11/02/22 23:13 91 H 97 11/02/22 23:08 84 99 11/02/22 23:06 85 131/73 11/02/22 23:03 84 99 11/02/22 22:58 92 H 99 11/02/22 22:53 88 99 11/02/22 22:48 92 H 97 11/02/22 22:43 82 98 11/02/22 22:38 90 97 11/02/22 22:36 82 134/73 93 11/02/22 22:33 81 96 11/02/22 22:30 37.1 C 18 11/02/22 22:28 81 96 11/02/22 22:23 81 96 11/02/22 22:21 92 H 143/84 H 11/02/22 22:18 86 97 11/02/22 22:00 18 11/02/22 22:00 18 11/02/22 22:13 91 H 96 11/02/22 22:08 90 97 11/02/22 22:07 86 140/87 11/02/22 22:06 86 93 11/02/22 22:03 89 97 11/02/22 21:58 93 H 97 11/02/22 21:53 95 H 97 11/02/22 21:51 85 136/73 11/02/22 21:48 95 H 97 11/02/22 21:46 86 94 11/02/22 21:43 84 96 11/02/22 21:38 82 96 11/02/22 21:37 83 134/72 11/02/22 21:30 20 11/02/22 21:30 20 11/02/22 21:33 82 95 11/02/22 21:28 83 96 11/02/22 21:23 84 96 11/02/22 21:21 85 144/68 H 11/02/22 21:00 18 11/02/22 21:00 18 11/02/22 21:18 87 97 11/02/22 21:13 90 98 11/02/22 21:08 81 97 11/02/22 21:06 84 134/65 11/02/22 21:03 89 97
[2022-11-03] MEDS ORDERED: MoRPHine SULFATE PF 1 MG/ML 10 ML AMP/VIAL ONE (10:36)
[2022-11-03] MEDS ORDERED: SUCCINYLCHOLINE CHLORIDE 20 MG/ML 10 ML VIAL IV ONE (10:38)
[2022-11-03] MEDS ORDERED: ONDANSETRON INJ 2 MG/ML 2 ML VIAL ONE (10:38)
[2022-11-03] MEDS ORDERED: OXYTOCIN 10 UNITS/ML 10ML VIAL ONE (10:38)
[2022-11-03] MEDS ORDERED: METOCLOPRAMIDE HCL INJ 5 MG/ML 2 ML VIAL ONE (10:38)
--- NOTE | 2022-11-03 10:40 | Obstetrical Progress Note ---
Date of Service November 03, 2022 Assessment & Plan Admission and Anticipated Discharge Date Admission Date: November 01, 2022 Subjective Patient has been pushing with good efforts since 7 am with some rests in between Oxytocin was increased to 22 miu/min Caput succedaneum is getting larger, no progress in bony part of head Recommended primary Csection. Patient understands C section is a major surgery, with risks including but not limited to bleeding , infection, injury to surrounding organs like bowels, bladder, ureters, adhesions, scarring, wound infection, blood cloths in legs/ lungs, longer recovery. All questions were answered. She signed an informed consent. Results & Data Vital Signs (Past 12 Hours) Vital Signs Temp Pulse Resp BP Pulse Ox 11/03/22 10:34 92 H 97 11/03/22 10:29 88 98 11/03/22 10:28 84 133/73 11/03/22 10:24 79 98 11/03/22 10:19 84 96 11/03/22 10:14 84 97 11/03/22 10:09 83 96 11/03/22 10:04 84 98 11/03/22 09:59 87 98 11/03/22 09:57 96 H 144/81 H 11/03/22 09:54 90 99 11/03/22 09:49 94 H 98 11/03/22 09:44 98 H 99 11/03/22 09:39 103 H 97 11/03/22 09:34 104 H 97 11/03/22 09:29 100 H 98 11/03/22 09:24 103 H 97 11/03/22 09:19 91 H 98 11/03/22 09:14 90 98 11/03/22 09:12 90 142/77 H 11/03/22 09:09 86 97 11/03/22 09:04 104 H 98 11/03/22 08:59 100 H 98 11/03/22 08:57 85 119/58 L 11/03/22 08:54 36.9 C 89 97 11/03/22 08:49 82 97 11/03/22 08:44 80 97 11/03/22 08:42 80 120/74 11/03/22 08:39 84 98 11/03/22 08:34 83 98 11/03/22 08:29 80 95 11/03/22 08:28 76 129/61 11/03/22 08:24 76 96 11/03/22 08:19 79 95 11/03/22 08:14 82 96 11/03/22 08:13 73 130/64 11/03/22 08:09 77 97 11/03/22 08:04 77 97 11/03/22 07:59 78 95 11/03/22 07:57 89 128/74 11/03/22 07:54 86 98 11/03/22 07:49 101 H 98 11/03/22 07:44 98 11/03/22 07:44 80 11/03/22 07:44 80 127/60 11/03/22 07:15 26 H 11/03/22 07:15 36.8 C 26 H 11/03/22 07:39 82 97 11/03/22 07:34 85 97 11/03/22 07:29 79 98 11/03/22 07:28 78 137/65 11/03/22 07:24 79 97 11/03/22 07:19 79 97 11/03/22 07:14 79 97 11/03/22 07:12 81 131/75 11/03/22 07:09 79 96 11/03/22 07:04 76 96 11/03/22 06:59 79 97 11/03/22 06:54 82 98 11/03/22 06:49 84 99 11/03/22 06:45 18 11/03/22 06:45 18 11/03/22 06:44 84 98 11/03/22 06:42 77 129/65 11/03/22 06:39 84 96 11/03/22 06:34 79 94 11/03/22 06:29 93 H 97 11/03/22 06:28 83 134/73 11/03/22 06:24 84 97 11/03/22 06:19 89 98 11/03/22 06:14 86 96 11/03/22 06:12 84 114/61 11/03/22 06:09 84 96 11/03/22 06:04 88 96 11/03/22 05:59 85 96 11/03/22 05:54 92 H 98 11/03/22 05:49 92 H 94 11/03/22 05:44 100 H 97 11/03/22 05:43 80 119/59 L 11/03/22 05:39 85 96 11/03/22 05:37 85 88 L 11/03/22 05:34 80 96 11/03/22 05:29 86 97 11/03/22 05:28 86 132/60 11/03/22 05:24 86 98 11/03/22 05:19 114 H 96 11/03/22 05:14 100 H 98 11/03/22 05:09 89 98 11/03/22 05:04 93 H 98 11/03/22 04:59 84 97 11/03/22 04:54 83 97 11/03/22 04:49 87 97 11/03/22 04:44 91 H 97 11/03/22 04:42 88 154/90 H 11/03/22 04:39 86 96 11/03/22 04:34 82 97 11/03/22 04:29 94 H 99 11/03/22 04:27 92 H 148/84 H 11/03/22 04:24 85 95 11/03/22 04:19 89 98 11/03/22 04:14 88 96 11/03/22 04:13 86 131/73 11/03/22 04:09 89 96 11/03/22 04:04 95 H 97 11/03/22 03:59 86 96 11/03/22 03:58 83 139/66 11/03/22 03:54 91 H 95 11/03/22 03:49 90 96 11/03/22 03:44 94 H 96 11/03/22 03:42 85 130/63 11/03/22 03:39 85 95 11/03/22 03:34 87 94 11/03/22 03:29 82 95 11/03/22 03:27 82 128/59 L 11/03/22 03:24 84 95 11/03/22 03:19 81 95 11/03/22 03:14 82 96 11/03/22 03:12 90 116/75 11/03/22 03:09 84 96 11/03/22 03:04 84 97 11/03/22 02:59 82 96 11/03/22 02:57 78 112/62 11/03/22 02:54 84 96 11/03/22 02:49 83 97 11/03/22 02:48 82 127/61 11/03/22 02:44 87 98 11/03/22 02:43 87 195/93 H 11/03/22 02:39 99 H 97 11/03/22 02:34 99 H 96 11/03/22 02:29 94 H 97 11/03/22 02:27 96 H 150/72 H 11/03/22 02:24 93 H 98 11/03/22 02:19 93 H 95 11/03/22 02:14 91 H 95 11/03/22 02:12 86 131/62 11/03/22 02:09 90 97 11/03/22 02:04 91 H 99 11/03/22 01:59 90 96 11/03/22 01:54 93 H 95 11/03/22 01:53 107 H 84 L 11/03/22 01:49 91 H 96 11/03/22 01:44 89 96 11/03/22 01:39 99 H 97 11/03/22 01:34 96 H 97 11/03/22 01:29 118 H 98 11/03/22 01:24 131 H 96 11/03/22 01:19 96 H 97 11/03/22 01:14 102 H 98 11/03/22 01:09 105 H 97 11/03/22 01:04 114 H 98 11/03/22 00:59 116 H 98 11/03/22 00:54 104 H 97 11/03/22 00:51 111 H 123/72 11/03/22 00:48 101 H 97 11/03/22 00:43 99 H 98 11/03/22 00:38 91 H 97 11/03/22 00:37 83 132/85 11/03/22 00:33 95 H 98 11/03/22 00:28 111 H 98 11/03/22 00:23 87 97 11/03/22 00:22 94 H 133/75 11/03/22 00:18 94 H 97 11/03/22 00:13 89 96 11/03/22 00:08 93 H 96 11/03/22 00:06 91 H 147/80 H 11/03/22 00:03 94 H 97 11/02/22 23:58 89 96 11/02/22 23:53 95 H 97 11/02/22 23:51 95 H 136/81 11/02/22 23:48 88 96 11/02/22 23:43 96 H 96 11/02/22 23:38 93 H 97 11/02/22 23:37 92 H 140/83 94 11/02/22 23:33 92 H 96 11/02/22 23:28 98 H 97 11/02/22 23:23 90 97 11/02/22 23:21 88 138/73 11/02/22 23:18 87 97 11/02/22 23:00 20 11/02/22 23:00 20 11/02/22 23:13 91 H 97 11/02/22 23:08 84 99 11/02/22 23:06 85 131/73 11/02/22 23:03 84 99 11/02/22 22:58 92 H 99 11/02/22 22:53 88 99 11/02/22 22:48 92 H 97 11/02/22 22:43 82 98 11/02/22 22:38 90 97
[2022-11-03] MEDS ORDERED: CITRIC ACID/SODIUM CITRATE 15 ML UDC ONE (10:53)
[2022-11-03] MEDS ORDERED: LACTATED RINGER'S 500 ML IV PRN (11:47)
[2022-11-03] MEDS ORDERED: PROMETHAZINE HCL 12.5 MG in SODIUM CHLORIDE 0.9% 50 ML IV PRN (11:47)
[2022-11-03] MEDS ORDERED: ONDANSETRON INJ 2 MG/ML 2 ML VIAL IV PRN (11:47)
[2022-11-03] MEDS ORDERED: MoRPHine SULFATE 2 MG/ML CARP IV PRN (11:47)
[2022-11-03] MEDS ORDERED: NALOXONE HCL 0.4 MG/1 ML VIAL/CARP IV PRN (11:47)
[2022-11-03] MEDS ORDERED: MoRPHine SULFATE PF 1 MG/ML 10 ML AMP/VIAL EPI ONE (11:47)
[2022-11-03] MEDS ORDERED: NALOXONE HCL 0.08 MG in SYRINGE 1.8 ML IV PRN (11:47)
[2022-11-03] MEDS ORDERED: NALOXONE HCL 1 MG in SODIUM CHLORIDE 0.9% 1000ML 1,000 ML IV PRN (11:47)
[2022-11-03] MEDS ORDERED: diphenhydrAMINE 50 MG/ML VIAL IV PRN (11:47)
[2022-11-03] MEDS ORDERED: NALBUPHINE HCL INJ 10 MG/ML AMP IV PRN (11:47)
[2022-11-03] MEDS ORDERED: KETOROLAC 30 MG/ML VIAL IV PRN (11:47)
[2022-11-03] MEDS ORDERED: ePHEDrine sulfate 50 MG/ML AMP IV PRN (11:47)
[2022-11-03] MEDS ORDERED: METHYLERGONOVINE MALEATE 0.2 MG/ML AMP ONE (11:56)
[2022-11-03] MEDS ORDERED: PHENYLEPHRINE 100MCG/ML 5ML SYR ONE (11:57)
[2022-11-03] MEDS ORDERED: ePHEDrine sulfate 50 MG/ML SYR ONE (11:57)
[2022-11-03] MEDS ORDERED: SODIUM CHLORIDE 0.9% 1000ML 1,000 ML IV SCH (12:00)
[2022-11-03] MEDS ORDERED: NO NARCOTICS OR SEDATIVES SCH (12:00)
[2022-11-03] MEDS ORDERED: DC INTRASPINAL MORPHINE SCH (12:00)
[2022-11-03] MEDS ORDERED: SODIUM CHLORIDE 0.9% PF INJ 10 ML VIAL ONE (12:01)
--- NOTE | 2022-11-03 12:19 | Anesthesia Procedure Note ---
Date of Service November 03, 2022 Anesthesia Post Epidural Note Vital Signs Vital Signs: Temp Pulse Resp BP Pulse Ox O2 Del Method 36.9 C 110 H 26 H 138/78 97 Room Air 11/03/22 08:54 11/03/22 11:04 11/03/22 07:15 11/03/22 10:57 11/03/22 11:04 11/02/22 07:18 Pain Intensity Abdomen: Pain Intensity: 8 Notes Mental Status: alert / awake / arousable and participated in evaluation Nausea / Vomiting: adequately controlled Pain: adequately controlled Airway Patency, RR, SpO2: stable & adequate BP & HR: stable & adequate Hydration State: stable & adequate Neuraxial Anesthesia: was administered and sensory block is resolving Anesthetic Complications: no major complications apparent Epidural: Removed without complications and With tip intact
[2022-11-03] MEDS ORDERED: miSOPROStoL 200 MCG TAB ONE (12:55)
[2022-11-03] MEDS ORDERED: SENNA 8.6 MG TAB PO PRN (13:06)
[2022-11-03] MEDS ORDERED: MEASLES, MUMPS & RUBELLA VIRUS VIAL SQ ONE (13:06)
[2022-11-03] MEDS ORDERED: DIPHTHERIA/TETANUS/PERTUSSIS 0.5mL SYR/VIAL (Age 7+yrs) IM ONE (13:06)
[2022-11-03] MEDS ORDERED: HYDROCORTISONE ACETATE 25 MG SUPP PR PRN (13:06)
[2022-11-03] MEDS ORDERED: MAGNESIUM HYDROXIDE SUSP 30 ML UDC PO PRN (13:06)
[2022-11-03] MEDS ORDERED: BENZOCAINE 20% AER SPR 82.5 GM CAN EXT PRN (13:06)
--- NOTE | 2022-11-03 13:14 | Post Operative Brief Note ---
Immediate Post Op Note v1 Date of Surgery November 03, 2022 Pre & Post Diagnosis Operation Date: 11/03/22 11:00 <No data on this case meets the specified criteria> Procedure Operation Date: 11/03/22 11:00 <No data on this case meets the specified criteria> Surgeon Jennifer Altman MD
[2022-11-03] MEDS ORDERED: miSOPROStoL 200 MCG TAB PR ONE (13:24)
[2022-11-03] MEDS: OXYTOCIN 20 UNITS in LACTATED RINGER'S 1,000 ML IV SCH ×2 (13:57→23:31)
[2022-11-03 14:21] LABS: Base Excess Cord Venous Blood -7.5 mEq/L (-7.7-1.9); Cord Venous Blood HCO3 19 mmol/L (18.4-26.8); Cord Venous Blood PCO2 40 mmHg (30.4-57.2); Cord Venous Blood PO2 25 mmHg (14.1-43.3); Cord Venous Blood pH 7.28 (7.20-7.44); O2 Saturation Cord Venous Bld < 60.0 % (<68)
[2022-11-03] MEDS ORDERED: OXYTOCIN 10 UNITS/ML 10ML VIAL IM ONE (15:33)
[2022-11-03] MEDS: miSOPROStoL 200 MCG TAB ONE ×2 (16:02→16:04)
--- NOTE | 2022-11-03 17:00 | Anesthesiology Progress Note ---
Date of Service November 03, 2022 Anesthesia Post Procedure Vital Signs Vital Signs: Temp Pulse Resp BP Pulse Ox 11/03/22 13:21 20 98 11/03/22 13:21 20 98 11/03/22 13:21 37.5 C 20 98 11/03/22 13:11 20 98 11/03/22 13:01 24 98 11/03/22 12:51 16 98 11/03/22 12:41 22 11/03/22 12:31 16 98 11/03/22 12:21 36.8 C 16 98 11/02/22 19:07 37.0 C 18 11/03/22 14:52 93 H 97 11/03/22 14:47 105 H 96 11/03/22 14:42 100 H 95 11/03/22 14:37 101 H 98 11/03/22 14:32 97 H 120/54 L 95 11/03/22 14:30 82 168/93 H 11/03/22 14:27 93 H 96 11/03/22 14:22 95 H 96 11/03/22 14:17 100 H 96 11/03/22 14:12 97 H 96 11/03/22 14:07 98 H 96 11/03/22 14:02 93 H 97 11/03/22 14:01 93 H 158/71 H 11/03/22 13:57 94 H 97 11/03/22 13:52 88 98 11/03/22 13:47 87 97 11/03/22 13:42 86 98 11/03/22 13:37 87 97 11/03/22 13:32 94 H 98 11/03/22 13:29 85 152/63 H 11/03/22 13:27 86 98 11/03/22 13:22 84 97 11/03/22 13:18 81 155/69 H 11/03/22 13:17 89 97 11/03/22 13:12 85 98 11/03/22 13:08 90 157/71 H 11/03/22 13:07 86 98 11/03/22 13:02 91 H 98 11/03/22 12:58 86 152/69 H 11/03/22 12:57 87 99 11/03/22 12:52 88 99 11/03/22 12:49 92 H 158/74 H 11/03/22 12:47 98 H 99 11/03/22 12:42 98 H 99 11/03/22 12:39 94 H 149/78 H 11/03/22 12:37 103 H 98 11/03/22 12:35 104 H 88 L 11/03/22 12:32 91 H 100 11/03/22 12:28 89 143/71 H 11/03/22 12:27 91 H 99 11/03/22 12:22 99 H 99 11/03/22 12:21 93 H 143/66 H 11/03/22 12:19 98 H 196/109 H 11/03/22 11:04 110 H 97 11/03/22 10:59 106 H 96 11/03/22 10:57 103 H 138/78 11/03/22 10:54 95 H 98 11/03/22 10:49 96 H 97 11/03/22 10:44 88 96 11/03/22 10:42 90 128/74 11/03/22 10:39 89 97 11/03/22 10:34 92 H 97 11/03/22 10:29 88 98 11/03/22 10:28 84 133/73 11/03/22 10:24 79 98 11/03/22 10:19 84 96 11/03/22 10:14 84 97 11/03/22 10:09 83 96 11/03/22 10:04 84 98 11/03/22 09:59 87 98 11/03/22 09:57 96 H 144/81 H 11/03/22 09:54 90 99 11/03/22 09:49 94 H 98 11/03/22 09:44 98 H 99 11/03/22 09:39 103 H 97 11/03/22 09:34 104 H 97 11/03/22 09:29 100 H 98 11/03/22 09:24 103 H 97 11/03/22 09:19 91 H 98 11/03/22 09:14 90 98 11/03/22 09:12 90 142/77 H 11/03/22 09:09 86 97 11/03/22 09:04 104 H 98 11/03/22 08:59 100 H 98 11/03/22 08:57 85 119/58 L 11/03/22 08:54 36.9 C 89 97 11/03/22 08:49 82 97 11/03/22 08:44 80 97 11/03/22 08:42 80 120/74 11/03/22 08:39 84 98 11/03/22 08:34 83 98 11/03/22 08:29 80 95 11/03/22 08:28 76 129/61 11/03/22 08:24 76 96 11/03/22 08:19 79 95 11/03/22 08:14 82 96 11/03/22 08:13 73 130/64 11/03/22 08:09 77 97 11/03/22 08:04 77 97 11/03/22 07:59 78 95 11/03/22 07:57 89 128/74 11/03/22 07:54 86 98 11/03/22 07:49 101 H 98 11/03/22 07:44 98 11/03/22 07:44 80 11/03/22 07:44 80 127/60 11/03/22 07:15 26 H 11/03/22 07:15 36.8 C 26 H 11/03/22 07:39 82 97 11/03/22 07:34 85 97 11/03/22 07:29 79 98 11/03/22 07:28 78 137/65 11/03/22 07:24 79 97 11/03/22 07:19 79 97 11/03/22 07:14 79 97 11/03/22 07:12 81 131/75 11/03/22 07:09 79 96 11/03/22 07:04 76 96 11/03/22 06:59 79 97 11/03/22 06:54 82 98 11/03/22 06:49 84 99 11/03/22 06:45 18 11/03/22 06:45 18 11/03/22 06:44 84 98 11/03/22 06:42 77 129/65 11/03/22 06:39 84 96 11/03/22 06:34 79 94 11/03/22 06:29 93 H 97 11/03/22 06:28 83 134/73 11/03/22 06:24 84 97 11/03/22 06:19 89 98 11/03/22 06:14 86 96 11/03/22 06:12 84 114/61 11/03/22 06:09 84 96 11/03/22 06:04 88 96 11/03/22 05:59 85 96 11/03/22 05:54 92 H 98 11/03/22 05:49 92 H 94 11/03/22 05:44 100 H 97 11/03/22 05:43 80 119/59 L 11/03/22 05:39 85 96 11/03/22 05:37 85 88 L 11/03/22 05:34 80 96 11/03/22 05:29 86 97 11/03/22 05:28 86 132/60 11/03/22 05:24 86 98 11/03/22 05:19 114 H 96 11/03/22 05:14 100 H 98 11/03/22 05:09 89 98 11/03/22 05:04 93 H 98 11/03/22 04:59 84 97 11/03/22 04:54 83 97 11/03/22 04:49 87 97 11/03/22 04:44 91 H 97 11/03/22 04:42 88 154/90 H 11/03/22 04:39 86 96 11/03/22 04:34 82 97 11/03/22 04:29 94 H 99 11/03/22 04:27 92 H 148/84 H 11/03/22 04:24 85 95 11/03/22 04:19 89 98 11/03/22 04:14 88 96 11/03/22 04:13 86 131/73 11/03/22 04:09 89 96 11/03/22 04:04 95 H 97 11/03/22 03:59 86 96 11/03/22 03:58 83 139/66 11/03/22 03:54 91 H 95 11/03/22 03:49 90 96 11/03/22 03:44 94 H 96 11/03/22 03:42 85 130/63 11/03/22 03:39 85 95 11/03/22 03:34 87 94 11/03/22 03:29 82 95 11/03/22 03:27 82 128/59 L 11/03/22 03:24 84 95 11/03/22 03:19 81 95 11/03/22 03:14 82 96 11/03/22 03:12 90 116/75 11/03/22 03:09 84 96 11/03/22 03:04 84 97 11/03/22 02:59 82 96 04/13/23 02:57 78 112/62 11/03/22 02:54 84 96 11/03/22 02:49 83 97 11/03/22 02:48 82 127/61 11/03/22 02:44 87 98 11/03/22 02:43 87 195/93 H 11/03/22 02:39 99 H 97 11/03/22 02:34 99 H 96 11/03/22 02:29 94 H 97 11/03/22 02:27 96 H 150/72 H 11/03/22 02:24 93 H 98 11/03/22 02:19 93 H 95 11/03/22 02:14 91 H 95 11/03/22 02:12 86 131/62 11/03/22 02:09 90 97 11/03/22 02:04 91 H 99 11/03/22 01:59 90 96 11/03/22 01:54 93 H 95 11/03/22 01:53 107 H 84 L 11/03/22 01:49 91 H 96 11/03/22 01:44 89 96 11/03/22 01:39 99 H 97 11/03/22 01:34 96 H 97 11/03/22 01:29 118 H 98 11/03/22 01:24 131 H 96 11/03/22 01:19 96 H 97 11/03/22 01:14 102 H 98 11/03/22 01:09 105 H 97 11/03/22 01:04 114 H 98 11/03/22 00:59 116 H 98 11/03/22 00:54 104 H 97 11/03/22 00:51 111 H 123/72 11/03/22 00:48 101 H 97 11/03/22 00:43 99 H 98 11/03/22 00:38 91 H 97 11/03/22 00:37 83 132/85 11/03/22 00:33 95 H 98 11/03/22 00:28 111 H 98 11/03/22 00:23 87 97 11/03/22 00:22 94 H 133/75 11/03/22 00:18 94 H 97 11/03/22 00:13 89 96 11/03/22 00:08 93 H 96 11/03/22 00:06 91 H 147/80 H 11/03/22 00:03 94 H 97 11/02/22 23:58 89 96 11/02/22 23:53 95 H 97 11/02/22 23:51 95 H 136/81 11/02/22 23:48 88 96 11/02/22 23:43 96 H 96 11/02/22 23:38 93 H 97 11/02/22 23:37 92 H 140/83 94 11/02/22 23:33 92 H 96 11/02/22 23:28 98 H 97 11/02/22 23:23 90 97 11/02/22 23:21 88 138/73 11/02/22 23:18 87 97 11/02/22 23:00 20 11/02/22 23:00 20 11/02/22 23:13 91 H 97 11/02/22 23:08 84 99 11/02/22 23:06 85 131/73 11/02/22 23:03 84 99 11/02/22 22:58 92 H 99 11/02/22 22:53 88 99 11/02/22 22:48 92 H 97 11/02/22 22:43 82 98 11/02/22 22:38 90 97 11/02/22 22:36 82 134/73 93 11/02/22 22:33 81 96 11/02/22 22:30 37.1 C 18 11/02/22 22:28 81 96 11/02/22 22:23 81 96 11/02/22 22:21 92 H 143/84 H 11/02/22 22:18 86 97 11/02/22 22:00 18 11/02/22 22:00 18 11/02/22 22:13 91 H 96 11/02/22 22:08 90 97 11/02/22 22:07 86 140/87 11/02/22 22:06 86 93 11/02/22 22:03 89 97 11/02/22 21:58 93 H 97 11/02/22 21:53 95 H 97 11/02/22 21:51 85 136/73 11/02/22 21:48 95 H 97 11/02/22 21:46 86 94 11/02/22 21:43 84 96 11/02/22 21:38 82 96 11/02/22 21:37 83 134/72 11/02/22 21:30 20 11/02/22 21:30 20 11/02/22 21:33 82 95 11/02/22 21:28 83 96 11/02/22 21:23 84 96 11/02/22 21:21 85 144/68 H 11/02/22 21:00 18 11/02/22 21:00 18 11/02/22 21:18 87 97 11/02/22 21:13 90 98 11/02/22 21:08 81 97 11/02/22 21:06 84 134/65 11/02/22 21:03 89 97 11/02/22 20:58 84 96 11/02/22 20:53 79 94 11/02/22 20:52 78 132/60 11/02/22 20:48 78 94 11/02/22 20:47 76 94 11/02/22 20:43 77 96 11/02/22 20:40 78 94 11/02/22 20:38 78 126/62 96 11/02/22 20:30 18 11/02/22 20:30 18 11/02/22 20:33 80 96 11/02/22 20:28 80 97 11/02/22 20:23 81 130/66 97 11/02/22 20:18 78 97 11/02/22 20:13 82 98 11/02/22 20:08 77 96 11/02/22 19:30 18 11/02/22 19:30 18 11/02/22 20:00 18 11/02/22 20:00 18 11/02/22 20:06 77 114/65 94 11/02/22 20:03 77 97 11/02/22 19:58 87 96 11/02/22 19:53 82 96 11/02/22 19:52 81 125/76 93 11/02/22 19:48 82 97 11/02/22 19:43 82 96 11/02/22 19:38 81 96 11/02/22 19:37 76 137/80 11/02/22 19:33 82 96 11/02/22 19:28 82 96 11/02/22 19:23 79 98 11/02/22 19:22 76 131/83 11/02/22 19:18 80 96 11/02/22 19:13 75 97 11/02/22 19:08 74 98 11/02/22 19:06 74 132/79 11/02/22 19:00 18 11/02/22 19:00 18 11/02/22 19:03 83 98 11/02/22 18:58 78 97 11/02/22 18:53 77 98 11/02/22 18:48 89 97 11/02/22 18:43 80 97 11/02/22 18:38 78 98 11/02/22 18:30 18 11/02/22 18:30 18 11/02/22 18:33 81 98 11/02/22 18:31 77 139/77 11/02/22 18:28 73 95 11/02/22 18:00 18 11/02/22 18:00 18 11/02/22 18:23 76 96 11/02/22 18:22 78 94 11/02/22 18:18 76 94 11/02/22 17:30 18 11/02/22 17:30 18 11/02/22 18:16 79 94 11/02/22 18:13 77 95 11/02/22 18:08 75 96 11/02/22 18:03 76 96 11/02/22 17:58 75 97 11/02/22 17:53 79 98 11/02/22 17:48 80 98 11/02/22 17:43 79 97 11/02/22 17:38 80 97 11/02/22 17:33 79 98 11/02/22 17:31 81 125/66 11/02/22 17:28 81 98 11/02/22 17:23 79 97 11/02/22 17:18 79 96 11/02/22 17:13 77 97 11/02/22 17:08 80 97 11/02/22 17:03 83 98 Pain Intensity Abdomen: Pain Intensity: 4 Transfer of Care Handoff Completed per policy Notes Mental Status: alert / awake / arousable Patient Amnestic to Procedure: Yes Nausea / Vomiting: adequately controlled Pain: adequately controlled Airway Patency, RR, SpO2: stable & adequate BP & HR: stable & adequate Hydration State: stable & adequate Anesthetic Complications: no major complications apparent
[2022-11-03] MEDS: SIMETHICONE 80 MG CHEW PO SCH ×2 (17:28→20:40)
--- NOTE | 2022-11-03 17:40 | Operative Report (OR) ---
DATE OF SURGERY: 11/03/2022. PREOPERATIVE DIAGNOSES: The patient is a 22-year-old G1, P0 at 41.3 weeks who has been admitted since 11/01/2022 for induction of labor for postdates, protracted labor, arrest of descent despite pushing for hours. POSTOPERATIVE DIAGNOSES: The patient is a 22-year-old G1, P0 at 41.3 weeks who has been admitted since 11/01/2022 for induction of labor for postdates, protracted labor, arrest of descent despite pushing for hours. Nuchal cord x2. PROCEDURE: Primary low transverse with Pfannenstiel skin incision, excision of bilateral ovarian papillary lesions. SURGEON: Jennifer Altman MD. STAINED GLASS GLAZIER HELPER: Dr. Conner. COMPLICATIONS: None. ESTIMATED BLOOD LOSS: 600 mL DRAINS: Ram catheter drained 100 mL of urine. ANESTHESIA: Labor epidural. ANESTHESIOLOGIST: Dr. Walton. FINDINGS: Baby was a viable male infant, delivered at 11:29 a.m. in cephalic presentation. Apgars were 7/9, weight is 4053 grams. There was nuchal cord around the neck x2. MATERNAL FINDINGS: Normal uterus, fallopian tubes, and there were small papillary lesions on bilateral ovaries. Right side was about 0.5x0.5 cm, left side was about 1 x 0.5 cm. They were sent to the pathology. INDICATION OF THE PROCEDURE: The patient is a 22-year-old G1, P0 at 41.3 weeks, who was admitted on 11/01/2022 for induction of labor for postdates. She had cervical ripening and then Ram balloon was inserted by myself yesterday and with the IV oxytocin running. She was then ruptured in the afternoon, progressed to 9 cm and 0 to +1 station. She stayed with same exam for 5 hours and then start pushing when cervix was fullly dilated. Despite pushing for about 5 hours on and off, the head could not come down and formed a large caput succedaneum . Decision was made to proceed with primary section. DESCRIPTION OF PROCEDURE: The patient was taken to the operating room where epidural anesthesia was found to be adequate. She was placed in dorsal lithotomy position and prepared and draped in the usual sterile fashion. A Pfannenstiel skin incision was made and carried through to the underlying layer of fascia with the Bovie. Fascia was incised in the midline and incision was extended laterally with the help of Jensen scissors. Upper aspect of the fascial incision was grasped with 2 Leno clamps, elevated. Underlying rectus muscles were dissected off sharply with Jensen scissors. Same thing was done on the lower aspect of the incision, which was also dissected from the underlying rectus muscles and then rectus muscles were in the midline. Peritoneum was entered bluntly with fingers and then peritoneal incision was extended superiorly and inferiorly with good visualization of the bladder. Bladder blade was inserted. Lower uterine segment was incised in transverse fashion. Incision was extended laterally with the help of fingers. Membranes were ruptured and meconium stained fluid was obtained. We came across with the baby's shoulder and nuchal cord around the neck x2. Baby's head was down in the vagina from prolonged pushing, it was brought up to the incision and delivered without difficulty. Shoulders were delivered with minimal traction. Mouth and nose were suctioned. Cord was clamped x2 and cut and baby was handed to waiting pediatric nursing team with Dr. Salinas. Placenta was delivered manually as intact and complete. Uterus was exteriorized and cleared of all clots and debris. Uterine incision was repaired with 0 Vicryl in a running locked fashion. A second imbricating layer was placed with another suture in a running locked fashion. Excellent hemostasis was achieved. Cul-de-sac was irrigated with warm normal saline and suctioned. Fallopian tubes were found to be normal, on both ovaries, there were found to be small papillary lesions. Right side was 5x5 mm. It was incised with a tip of Bovie and sent to pathology. On the left side, it was again white papillary lesion about 5 x 10 mm in size and that was also incised from the base with the tip of Bovie and sent to pathology. Rest of the ovaries were normal and hemostatic. Uterine incision was checked to be hemostatic. Uterus was returned to the patient's abdomen. Pelvis was irrigated with warm normal saline and suctioned. Uterus was checked to be again hemostatic. The parietal peritoneum was reapproximated with 3- Vicryl in a running fashion and the rectus muscles were brought together with the same suture in a running fashion. Rectus fascia was reapproximated with 0 Vicryl in a running fashion and the subcuticular fat tissue was brought together with 3-0 Vicryl in a running fashion. The skin was closed with 4-0 Monocryl in a subcuticular fashion. The incision was draped with a ZACHARIAH dressing. The patient tolerated the procedure well. Sponge, lap, needle count was correct x3. She was given IV cefazolin, gentamicin and clindamycin before surgery. She was taken to recovery room in stable condition. I was present during whole procedure. Dr. Conner, my payroll human resources assistant was needed for retraction, aid during delivery of and hemostasis and he was present during whole procedure. Job ID: [id number] [facility]
[2022-11-03] MEDS: ceFAZolin 2000MG 2,000 MG/15 ML SYR IV SCH (18:37)
[2022-11-03] MEDS: CLINDAMYCIN/D5W 900 MG/50 ML BAG IV SCH (19:11)
[2022-11-03] MEDS: DOCUSATE SODIUM 100 MG CAP PO SCH (20:40)
[2022-11-04] MEDS: ceFAZolin 2000MG 2,000 MG/15 ML SYR IV SCH ×2 (03:51→11:30)
[2022-11-04] MEDS: CLINDAMYCIN/D5W 900 MG/50 ML BAG IV SCH ×2 (03:55→11:37)
[2022-11-04] MEDS ORDERED: PROMETHAZINE HCL 25 MG in SODIUM CHLORIDE 0.9% 50 ML IV PRN (05:48)
[2022-11-04] MEDS ORDERED: MEPERIDINE HCL 50 MG/ML CARP IV PRN (05:48)
[2022-11-04] MEDS ORDERED: ONDANSETRON INJ 2 MG/ML 2 ML VIAL IV PRN (05:48)
[2022-11-04] MEDS ORDERED: diphenhydrAMINE 50 MG/ML VIAL IV PRN (05:48)
[2022-11-04] MEDS ORDERED: diphenhydrAMINE Capsule 25 MG CAP PO PRN (05:48)
[2022-11-04] MEDS ORDERED: CITRIC ACID/SODIUM CITRATE 15 ML UDC PO SCH (06:00)
[2022-11-04 06:45] LABS: Basophils # (auto) 0.02 K/uL (0-0.2); Basophils % (auto) 0.1 %; Eosinophils # (auto) 0.03 K/uL (0-0.50); Eosinophils % (auto) 0.2 %; Hematocrit (blood only) 28.7 % (37.0-47.0); Hemoglobin 10.1 g/dl (12.0-16.0); Immature Granulocytes # (auto) 0.06 K/uL (0.01-0.20); Immature Granulocytes % (auto) 0.4 %; Lymphocytes % (auto) 9.6 %; Mean Corpuscular Hemoglobin 30.3 pg (25.0-34.0); Mean Corpuscular Hgb Conc 35.2 g/dL (32.0-36.0); Mean Corpuscular Volume 86.2 fL (80.0-100.0); Mean Platelet Volume 11.6 fL (9.4-12.4); Monocytes # (auto) 1.37 K/uL (0.11-0.59); Monocytes % (auto) 8.2 %; Neutrophils % (auto) 81.5 %; Platelet Count 132 K/uL (130-400); RDW Coefficient of Variation 13.5 % (11.5-14.5); Red Blood Count 3.33 M/uL (4.20-5.40); White Blood Count 16.68 K/ul (4.8-10.8)
[2022-11-04] MEDS: PRENATAL VITAMIN 1 TAB PO SCH (08:59)
[2022-11-04] MEDS: DOCUSATE SODIUM 100 MG CAP PO SCH ×2 (08:59→20:46)
[2022-11-04] MEDS: oxyCODONE/ACETAMINOPHEN 5mg/325mg TAB PO PRN ×3 (08:59→18:17)
[2022-11-04] MEDS: SIMETHICONE 80 MG CHEW PO SCH ×4 (08:59→20:46)
[2022-11-04] MEDS: FERROUS SULFATE 325 MG TAB PO SCH (08:59)
[2022-11-04] MEDS: IBUPROFEN 600 MG TAB PO PRN ×2 (13:27→18:17)
--- NOTE | 2022-11-04 14:13 | Obstetrical Progress Note ---
Date of Service November 04, 2022 Subjective Ambulation: ambulating normally Voiding: no voiding problems Passing Gas:: Yes Diet Tolerance:: regular diet Lochia:: Small Feeding Type:: breast feeding Current Pain Level(1-10): 0 doing well Physical Exam Constitutional WD/WN, vitals as above Gastrointestinal (Abdomen) Inspection/Auscultation: abdomen normal to inspection Musculoskeletal Extremities: extremities normal to inspection Skin no rashes, warm and dry Neurologic patellar DTR's 2+ bilat, sensation intact Psychiatric A+Ox3, euthymic affect Results & Data Vital Signs (Past 12 Hours) Vital Signs Temp Pulse Resp BP Pulse Ox O2 Del Method 11/04/22 07:40 36.5 C 86 18 119/81 97 Room Air 11/04/22 05:00 16 95 11/04/22 03:00 16 94 11/04/22 04:00 18 97 11/04/22 03:45 36.7 C 97 H 18 123/76 Room Air Laboratory Results Laboratory Results - last 72 hr 11/03/22 11/03/22 11/04/22 11:29 11:29 06:08 WBC 16.68 H RBC 3.33 L Hgb 10.1 L Hct 28.7 L MCV 86.2 MCH 30.3 MCHC 35.2 RDW Std Deviation 42.0 RDW Coeff of David 13.5 Plt Count 132 MPV 11.6 Immature Gran % (Auto) 0.4 Neut % (Auto) 81.5 Lymph % (Auto) 9.6 [place] % (Auto) 8.2 Eos % (Auto) 0.2 Baso % (Auto) 0.1 Neut # (Auto) 13.60 H Lymph # (Auto) 1.60 [place] # (Auto) 1.37 H Eos # (Auto) 0.03 Baso # (Auto) 0.02 Immature Gran # (Auto) 0.06 Cord ABG pH Cancelled Cord ABG pCO2 Cancelled Cord ABG pO2 Cancelled Cord ABG HCO3 Cancelled Cord ABG Base Excess Cancelled Cord ABG O2 Sat Cancelled Cord VBG pH 7.28 Cord VBG pCO2 40 Cord VBG pO2 25 Cord VBG HCO3 19 Cord VBG Base Excess -7.5 Cord VBG O2 Sat < 60.0 Barometric Pressure Cancelled Blood Gas Comments Cancelled BURRELL
[2022-11-04] MEDS ORDERED: bisacodyL 5 MG TABEC PO SCH (20:00)
[2022-11-05] MEDS: IBUPROFEN 600 MG TAB PO PRN ×2 (07:05→11:59)
[2022-11-05] MEDS: oxyCODONE/ACETAMINOPHEN 5mg/325mg TAB PO PRN ×2 (07:05→12:00)
[2022-11-05 08:11] LABS: Hematocrit (blood only) 27.2 % (37.0-47.0); Hemoglobin 9.4 g/dl (12.0-16.0)
[2022-11-05] MEDS: SIMETHICONE 80 MG CHEW PO SCH ×2 (08:20→11:59)
[2022-11-05] MEDS: FERROUS SULFATE 325 MG TAB PO SCH (08:20)
[2022-11-05] MEDS: PRENATAL VITAMIN 1 TAB PO SCH (08:20)
[2022-11-05] MEDS: DOCUSATE SODIUM 100 MG CAP PO SCH (08:21)
--- NOTE | 2022-11-05 11:00 | Obstetrical Progress Note ---
Date of Service November 05, 2022 Subjective Ambulation: ambulating normally Voiding: no voiding problems Passing Gas:: Yes Diet Tolerance:: regular diet Lochia:: Small Feeding Type:: breast feeding Current Pain Level(1-10): 0 doing well Physical Exam Constitutional WD/WN, vitals as above Gastrointestinal (Abdomen) Inspection/Auscultation: abdomen normal to inspection and + abdominal surgical incision Musculoskeletal Extremities: extremities normal to inspection Skin no rashes, warm and dry Neurologic patellar DTR's 2+ bilat, sensation intact Psychiatric A+Ox3, euthymic affect Results & Data Vital Signs (Past 12 Hours) Vital Signs Temp Pulse Resp BP Pulse Ox O2 Del Method 11/05/22 08:05 36.9 C 77 20 134/84 97 Room Air 11/04/22 23:25 36.8 C 93 H 16 124/82 95 Room Air Laboratory Results 11/01/22 11/01/22 11/01/22 11:15 11:15 Unknown WBC 13.21 H RBC 4.11 L Hgb 12.5 Hct 35.5 L MCV 86.4 MCH 30.4 MCHC 35.2 RDW Std Deviation 41.3 RDW Coeff of David 13.3 Plt Count 178 MPV 11.4 Immature Gran % (Auto) Neut % (Auto) Lymph % (Auto) [place] % (Auto) Eos % (Auto) Baso % (Auto) Neut # (Auto) Lymph # (Auto) [place] # (Auto) Eos # (Auto) Baso # (Auto) Immature Gran # (Auto) Cord ABG pH Cord ABG pCO2 Cord ABG pO2 Cord ABG HCO3 Cord ABG Base Excess Cord ABG O2 Sat Cord VBG pH Cord VBG pCO2 Cord VBG pO2 Cord VBG HCO3 Cord VBG Base Excess Cord VBG O2 Sat Barometric Pressure Blood Gas Comments SARS-CoV-2, RNA, NAAT NEGATIVE Blood Type A Positive Antibody Screen NEGATIVE Crossmatch See Detail 11/03/22 11/03/22 11/04/22 11:29 11:29 06:08 WBC 16.68 H RBC 3.33 L Hgb 10.1 L Hct 28.7 L MCV 86.2 MCH 30.3 MCHC 35.2 RDW Std Deviation 42.0 RDW Coeff of David 13.5 Plt Count 132 MPV 11.6 Immature Gran % (Auto) 0.4 Neut % (Auto) 81.5 Lymph % (Auto) 9.6 [place] % (Auto) 8.2 Eos % (Auto) 0.2 Baso % (Auto) 0.1 Neut # (Auto) 13.60 H Lymph # (Auto) 1.60 [place] # (Auto) 1.37 H Eos # (Auto) 0.03 Baso # (Auto) 0.02 Immature Gran # (Auto) 0.06 Cord ABG pH Cancelled Cord ABG pCO2 Cancelled Cord ABG pO2 Cancelled Cord ABG HCO3 Cancelled Cord ABG Base Excess Cancelled Cord ABG O2 Sat Cancelled Cord VBG pH 7.28 Cord VBG pCO2 40 Cord VBG pO2 25 Cord VBG HCO3 19 Cord VBG Base Excess -7.5 Cord VBG O2 Sat < 60.0 Barometric Pressure Cancelled Blood Gas Comments Cancelled BURRELL SARS-CoV-2, RNA, NAAT Blood Type Antibody Screen Crossmatch 11/05/22 07:54 WBC RBC Hgb 9.4 L Hct 27.2 L MCV MCH MCHC RDW Std Deviation RDW Coeff of David Plt Count MPV Immature Gran % (Auto) Neut % (Auto) Lymph % (Auto) [place] % (Auto) Eos % (Auto) Baso % (Auto) Neut # (Auto) Lymph # (Auto) [place] # (Auto) Eos # (Auto) Baso # (Auto) Immature Gran # (Auto) Cord ABG pH Cord ABG pCO2 Cord ABG pO2 Cord ABG HCO3 Cord ABG Base Excess Cord ABG O2 Sat Cord VBG pH Cord VBG pCO2 Cord VBG pO2 Cord VBG HCO3 Cord VBG Base Excess Cord VBG O2 Sat Barometric Pressure Blood Gas Comments SARS-CoV-2, RNA, NAAT Blood Type Antibody Screen Crossmatch
[2022-11-05] MEDS ORDERED: bisacodyL 10 MG SUPP PR PRN (13:06)
== END 2022-11-05 13:25 | disposition home or self-care (01) | DRG 788 ==
LOC: 4S1 10:24 → 4E2 11-03 16:26
DX: O62.1 Secondary uterine inertia; Z3A.40 40 weeks gestation of pregnancy; O69.81X0 Labor and delivery complicated by cord around neck, without compression, not applicable or unspecified; O48.0 Post-term pregnancy; Z37.0 Single live birth

== ENCOUNTER 2023-01-02 03:52 | Inpatient (IN) ==
--- NOTE | 2023-01-02 04:18 | Emergency Department Note ---
History of Present Illness General Chief complaint: Abdominal Pain Stated complaint: gall bladder Time Seen by Provider: 01/02/23 04:09 History of Present Illness Maximum Pain Intensity: 7 22-year-old female with a history of gallbladder issues who recently saw Dr. Morelos from surgery on December 20 for her gallbladder. She presented last evening with right upper quadrant abdominal pain that was persistent and was found to have elevated liver enzymes and gallstones on ultrasound. Patient was offered admission at that time however she was unable to be admitted due to the fact that she had childcare issues. Patient returns this morning for admission as she has had continued abdominal pain and nausea. Patient states that Dr. Morelos was evaluating her and at that point time the wanted to wait for her scar to heal more. Patient had a in October. Patient denies fever. Patient states mild to moderate right upper quadrant abdominal pain that is intermittent in nature. There are no other mitigating or alleviating factors Home Medications Medication Instructions Recorded Confirmed Type ibuprofen 600 mg tablet 600 mg PO Q6H PRN pain #30 tabs 11/05/22 12/20/22 Rx oxycodone-acetaminophen 5 mg-325 1 tab PO Q4H PRN pain #10 tabs 11/05/22 12/08/22 Rx mg tablet (Percocet) PNV-iron 29 mg-folic acid 1 1 pkg PO DAILY 12/08/22 12/20/22 History mg-omega3 250 mg-dha 200mg oral combo pack (Complete Diana DHA) Allergies Allergy/AdvReac Type Severity Reaction Status Date / Time No Known Allergies Allergy Unverified 12/20/22 09:20 Past Med/Surg History Medical History No known health problems Surgical History History of section (11/03/22) Social History Smoking Status: Never smoker Tobacco Type: Cigarettes packs per day: 1; Cigarettes Per Day: 8 STICKS OF CIGARETTES PER DAY.; Do You Dip or Chew Tobacco: No; Hx Alcohol Use: Yes Alcohol type: beer Hx Substance Use: No Preferred Language: Kittitian Communication Ability: Effective Manager Of Training Required: No Beliefs That Will Affect Care: None marital status: Single Current Living Situation: Significant Other Current Living Situation Comment: PATIENT LIVES WITH THE FATHER OF THE BABY. current occupational status: unemployed How many Children do You have: 1 Feels Safe at Home: Yes Diet: regular during the past year weight has: remained stable Immunizations: Past medical history includes gallstones Review of Systems A total of 10 systems reviewed and were otherwise negative Cardiovascular: no chest pain Gastrointestinal: + abdominal pain, + nausea and + vomiting Physical Exam Vital Signs Vital Signs - 24 hr 01/02/23 03:53 Temperature 36.6 C Temperature Source Temporal Artery Scan Pulse Rate 75 Pulse Rhythm Regular Pulse Strength Normal Respiratory Rate 16 Respiratory Effort / Characteristics Non-Labored Spontaneous Respiratory Depth Normal Respiratory Pattern Regular Blood Pressure 124/74 Blood Pressure Mean 90 Blood Pressure Position Sitting Pulse Oximetry 98 Oxygen Delivery Method Room Air Oxygen Flow Rate 0 Sepsis Recent Fever Within 48 Hours No Sepsis New/Unexplained Change in Mental Status No Sepsis Action Taken by Nursing No Action Required GENERAL: Patient is awake alert in no acute distress patient is resting comfortably and showing no signs of anxiety EYES: The conjunctivae are clear. The pupils are round and reactive. EARS, NOSE, MOUTH AND THROAT: The nose is without any evidence of any deformity. Mucous membranes are moist. Tongue is midline. NECK: The neck is nontender and supple. RESPIRATORY: Normal respiratory effort is noted there is no evidence of wheezing rhonchi or rales CARDIOVASCULAR: Regular rate and rhythm noted there no murmurs rubs or gallops normal S1 normal S2. GASTROINTESTINAL: The abdomen is soft. Abdomen is positive for right upper quadrant tenderness; there is no rebound rigidity or guarding BACK: Full range of motion MUSCULOSKELETAL/EXTREMITIES: There is no evidence of gross deformity full range of motion is noted in the hips and shoulders. SKIN: There is no obvious evidence of any rash. There are no petechiae, pallor or cyanosis noted. NEUROLOGIC: Patient is awake alert and oriented x3 strength is symmetric Course Reevaluation(s) Reevaluation #1: Patient was started on IV fluids, IV Toradol, kept n.p.o. Time: 04:29 Consultations Consultation #1: Case was discussed with the [facility] hospitalist for admission Time: 04:29 Administered Medications Sodium Chloride (Nss 1000ml) 1,000 mls @ 999 mls/hr IV .Q1H1M ONE Stop: 01/02/23 05:23 Last Admin: 01/02/23 04:32 Dose: 999 mls/hr Documented By: LYNDA Discontinued Medications Ketorolac Tromethamine (Ketorolac Tromethamine 15 Mg/Ml Vial) 15 mg IV NOW STA Stop: 01/02/23 04:29 Last Admin: 01/02/23 04:32 Dose: 15 mg Documented By: LYNDA Ondansetron HCl (Ondansetron Inj 2 Mg/Ml 2 Ml Vial) 4 mg IV NOW STA Stop: 01/02/23 04:24 Last Admin: 01/02/23 04:32 Dose: 4 mg Documented By: LYNDA Medical Decision Making Medical Records Attestation: I reviewed the patient's medical records. Home Medications Current Medication List: was personally reviewed by me Laboratory Data Attestation: I reviewed the patient's lab results. Lab results from last evening were interpreted by me she has a normal white blood cell count, LFTs are elevated MDM Narrative Medical decision making differential diagnosis includes cholelithiasis, biliary colic, cholecystitis, choledocholithiasis, right upper quadrant pain Plan is to admit External medical records were reviewed [facility] & Plan Gallstones, Transaminitis, Abdominal pain Discharge Plan Visit Data Chief Complaint: Abdominal Pain Stated Complaint: gall bladder ED Provider: Tunde Harvey Discharge Problem: Gallstones, Transaminitis, Abdominal pain Patient Disposition: Admitted As Inpatient Forms Stand Alone Forms: My [email or web address] Prescriptions Prescriptions: No Action Complete Diana DHA [id number] mg combo pack 1 pkg PO DAILY oxycodone-acetaminophen [Percocet] 5-325 mg Tablet 1 tab PO Q4H PRN (Reason: pain) Qty: 10 0RF ibuprofen 600 mg Tablet 600 mg PO Q6H PRN (Reason: pain) Qty: 30 2RF Referrals Referrals: Johnny Messina PA-C [Primary Care Provider] -
[2023-01-02] MEDS ORDERED: ONDANSETRON INJ 2 MG/ML 2 ML VIAL IV STA (04:23)
[2023-01-02] MEDS ORDERED: SODIUM CHLORIDE 0.9% 1000ML 1,000 ML IV ONE (04:23)
[2023-01-02] MEDS ORDERED: KETOROLAC TROMETHAMINE 15 MG/ML VIAL IV STA (04:28)
[2023-01-02 05:05] LABS: Basophils # (auto) 0.02 K/uL (0-0.2); Basophils % (auto) 0.2 %; Eosinophils # (auto) 0.03 K/uL (0-0.50); Eosinophils % (auto) 0.3 %; Hematocrit (blood only) 37.3 % (37.0-47.0); Hemoglobin 12.5 g/dl (12.0-16.0); Immature Granulocytes # (auto) 0.03 K/uL (0.01-0.20); Immature Granulocytes % (auto) 0.3 %; Lymphocytes # (auto) 1.09 K/uL (1.2-3.4); Lymphocytes % (auto) 10.7 %; Mean Corpuscular Hemoglobin 27.7 pg (25.0-34.0); Mean Corpuscular Hgb Conc 33.5 g/dL (32.0-36.0); Mean Corpuscular Volume 82.5 fL (80.0-100.0); Mean Platelet Volume 11.3 fL (9.4-12.4); Monocytes # (auto) 0.82 K/uL (0.11-0.59); Neutrophils # (auto) 8.23 K/uL (1.40-6.50); Neutrophils % (auto) 80.5 %; Platelet Count 179 K/uL (130-400); RDW Coefficient of Variation 13.2 % (11.5-14.5); RDW Standard Deviation 39.7 fL (36.4-46.3); Red Blood Count 4.52 M/uL (4.20-5.40); White Blood Count 10.22 K/ul (4.8-10.8)
[2023-01-02 05:23] LABS: BUN Creatinine Ratio 14.3 (10-20); Calcium 8.7 mg/dl (8.6-10.3); Est GFR (African American) 140.5 ml/min; Est GFR (Non-African American) 121.3 ml/min; Potassium 3.6 mmol/L (3.5-5.1)
[2023-01-02] MEDS ORDERED: MoRPHine SULFATE 4 MG/ML 1 ML CARP\\VIAL IV PRN (05:40)
[2023-01-02] MEDS ORDERED: ONDANSETRON INJ 2 MG/ML 2 ML VIAL IV PRN (05:40)
[2023-01-02 05:45] LABS: Albumin Globulin Ratio 1.5 (0.9-2); Bilirubin,Total 2.1 mg/dl (0.2-1.0); Globulin 2.6 gm/dl (2.5-4.0); Magnesium 1.8 mg/dl (1.7-2.4); Total Protein 6.6 gm/dl (6.0-8.3)
[2023-01-02] MEDS ORDERED: PIPERACILLIN/TAZOBACTAM 4.5 GM (over 30 mins) IV ONE (06:00)
--- NOTE | 2023-01-02 06:28 | Surgery Progress Note ---
Date of Service January 02, 2023 Assessment & Plan (1) Abdominal pain: Plan Patient admitted to the emergency room Right upper quadrant pain with elevated LFTs I recently saw her in the office on 12/20/2022 and she was scheduled for laparoscopic cholecystectomy She will require GI evaluation and possible ERCP Her total bilirubin is elevated and her AST and ALT are significantly elevated We will proceed with laparoscopic cholecystectomy possibly at the same time as ERCP Admission and Anticipated Discharge Date Admission Date: January 02, 2023 Results & Data Vital Signs (Past 12 Hours) Vital Signs Temp Pulse Pulse Resp BP BP Pulse Ox 01/02/23 05:22 62 14 121/77 96 01/02/23 03:53 36.6 C 75 16 124/74 98 O2 Del Method O2 Flow Rate 01/02/23 05:22 Room Air 01/02/23 03:53 Room Air 0 PG Care Time/CCT Total # of Minutes Spent Total Time Spent with Patient: Total time spent is greater than 50% in coordination of care (as documented) at patient's floor/unit and/or counseling patient: Coding Level of Care Code None Diagnoses Abdominal pain R10.9
--- NOTE | 2023-01-02 08:17 | History and Physical Report ---
DATE OF ADMISSION: 01/02/2023. CHIEF COMPLAINT: Abdominal pain. HISTORY OF PRESENT ILLNESS: A 22-year-old female with past medical history significant for obesity during , abnormal glucose testing during , tobacco use, history of gallstones, presented with abdominal pain. The patient says she was found to have gallstones during . She had a done at the end of October and she saw general surgery on 12/20/2022 for gallstones. Plan for doing surgery after the surgical site is healed properly. She has a followup appointment with [facility] on 01/04/2023. She came to the ER on 01/01/2023, yesterday evening with epigastric pain radiating to the right upper quadrant and right shoulder region, and labs showed elevated LFTs. Gallbladder scan done, which showed gallstone, but does not show any evident cholecystitis and lipase was normal. Urine test was negative. The patient advised for admission to the hospital for GI evaluation and surgical evaluation.The patient was given fluids, refused antiemetics and anti-analgesics and she wanted to go home to take care of her child. Was advised to come in the morning and the patient is now currently back in the ER with same symptoms, abdominal pain in the epigastric region radiating to the back and to the right shoulder region, 7/10 in severity, associated with nausea and vomiting. She says she vomited couple of times since she came to the ER. Denies any fever or chills. No diarrhea or constipation. Normal bladder movements. No chest pain, no shortness of breath, no cough, no headaches, no blurred visions, no earache, no runny nose, no sore throat, hemodynamically stable, resting comfortably. ALLERGIES: No known drug allergies. PAST MEDICAL HISTORY: As mentioned above. PAST SURGICAL HISTORY: . MEDICATIONS: The patient is not taking medications. FAMILY HISTORY: Significant for no known family history. SOCIAL HISTORY: As per Epic, smokes 1/4 pack a day. Not drinking currently, no drug use currently. REVIEW OF SYSTEMS: As per HPI. Rest of the review of systems is negative. PHYSICAL EXAMINATION: GENERAL: The patient is obese, not in acute distress. VITAL SIGNS: Temperature 36.6, pulse 74, respiratory rate 16, blood pressure 124/74, oxygen 96% on room air. HEENT: Pupils equal, round and reactive to light. Oral mucosa moist. NECK: No JVD, no neck masses. CARDIOVASCULAR: S1 and S2 heard. Regular rate and rhythm. No murmur, no gallop. RESPIRATORY SYSTEM: Normal AP diameter. No accessory muscle use. No wheezing or crackles. ABDOMEN: Soft, bowel sounds present. Tenderness in the epigastric region and guarding present. No distention. CENTRAL NERVOUS SYSTEM: Alert and oriented. Speech is clear. No facial droop. Obeys commands. Moves extremities. EXTREMITIES: No edema, no erythema. LABORATORY DATA: Today's labs are just ordered. Yesterday labs in the evening showed WBC of 7.4, hemoglobin 13.1, hematocrit 39.4, platelets 190. Sodium 139, potassium 3.6, chloride 108, bicarbonate 24, BUN 11, creatinine 0.7, serum glucose 108, total bilirubin 1.5, AST 500, ALT 288, alkaline phosphatase 112. Leukocyte esterase positive and +2 bacteria. test was negative. SARS-CoV-2 rapid test negative. IMAGING DATA: Gallbladder ultrasound done yesterday shows gallstones are seen without evidence of acute cholecystitis. ASSESSMENT AND PLAN: This 22-year-old female presents with abdominal pain with history of gallstones. 1. Abdominal pain, biliary colic, gallstones, also elevated LFTs, possible choledocholithiasis seen Surgery on 12/20, planned for procedure once surgical site incision is healed. Currently having ongoing abdominal pain and elevated LFTs. We will admit to medical floor. IV fluids, IV antibiotics with Zosyn, IV antiemetics p.r.n., IV morphine p.r.n. for pain. The patient says she is not . Consult General Surgery and consult GI for further recommendations.Will follow repeat labs. 2. Deep venous thrombosis prophylaxis: SCDs for now. DISPOSITION: Closely monitor in medical floor. Expect to discharge home and follow with family doctor. Job ID: [id number] [facility]
--- NOTE | 2023-01-02 10:46 | Gastrointestinal Consultation ---
Date of Consultation January 02, 2023 Assessment & Plan (1) Biliary colic: 22 year old female with abd pain, nausea/vomiting with gallstones and elevated LFTs. She would benefit from EUS/ERCP Unfortunately, we do not have any biliary staff this week. Would recommend transfer. Thank you for allowing us to participate in the care of this patient. Please call with any acute changes, questions or concerns. Please see addendum below with additional recommendation from my supervising physician. Supervising Physician Co-Signing Physician Notes Attending attestation I have seen, examined this patient, and agree with the findings and above by our mid-level provider SAVITA Amezcua, with the following additions: - Adm with abdominal pain and elevations of LFT's with gallstones - High probability of CBD stones, no ERCP physician is available on staff this week, will require transfer History of Present Illness Reason for Consultation: elevated LFTs Requesting Physician: Jethro Attending Physician: Evans Cordero MD History of Present Illness 22 year old female with history of obesity during , abnormal glucose testing during , tobacco use, history of gallstones admitted w/ abd pain, nausea/vomiting. GI asked to evaluate for elevated LFTs. Pt was seen and evaluated, chart reviewed. Notes that she has had intermittent abd pain, nausea/vomiting during and post-. Was planned for OP CCY. ABD 2022: Gallstones are seen without evidence of acute cholecystitis. Allergies Allergy/AdvReac Type Severity Reaction Status Date / Time No Known Allergies Allergy Unverified 12/20/22 09:20 Home Medications Medication Instructions Recorded Confirmed Type ibuprofen 600 mg tablet 600 mg PO Q6H PRN pain #30 tabs 11/05/22 12/20/22 Rx oxycodone-acetaminophen 5 mg-325 1 tab PO Q4H PRN pain #10 tabs 11/05/22 12/08/22 Rx mg tablet (Percocet) PNV-iron 29 mg-folic acid 1 1 pkg PO DAILY 12/08/22 12/20/22 History mg-omega3 250 mg-dha 200mg oral combo pack (Complete DHA) Patient History Medical History No known health problems Surgical History History of section (11/03/22) Social History Smoking Status: Never smoker Tobacco Type: Cigarettes packs per day: 1; Cigarettes Per Day: 8 STICKS OF CIGARETTES PER DAY.; Second Hand Exposure: No; Do You Dip or Chew Tobacco: No; Tobacco Cessation Education Requested by Patient: No Hx Alcohol Use: Yes Alcohol type: beer Hx Substance Use: No Preferred Language: Lao Communication Ability: Effective Escapement Matcher Required: No Beliefs That Will Affect Care: None marital status: Single Current Living Situation: Significant Other Current Living Situation Comment: PATIENT LIVES WITH THE FATHER OF THE BABY. current occupational status: unemployed How many Children do You have: 1 Other Information That Helps Us Care for You: No Feels Safe at Home: Yes Safety Concerns: Feels Safe At This Time Diet: regular during the past year weight has: remained stable Assistive Devices: Glasses Review of Systems Review of Systems: All systems reviewed & are unremarkable except as noted in HPI & below Physical Exam Constitutional: WD/WN, vitals as above Respiratory: normal respiratory effort, lungs clear to auscultation Cardiovascular: Rate/Rhythm: regular rate and regular rhythm Gastrointestinal (Abdomen): normal bowel sounds, soft, nontender, no hepatosplenomegaly Skin: no rashes, warm and dry Results & Data Vital Signs (Past 12 Hours) Vital Signs Temp Pulse Pulse Pulse Resp BP BP 01/02/23 07:36 36.3 C L 61 14 01/02/23 05:50 36.7 C 66 16 119/81 01/02/23 05:22 62 14 121/77 01/02/23 03:53 36.6 C 75 16 124/74 BP Pulse Ox O2 Del Method O2 Flow Rate 01/02/23 07:36 118/76 98 Room Air 01/02/23 05:50 99 Room Air 01/02/23 05:22 96 Room Air 01/02/23 03:53 98 Room Air 0
[2023-01-02] MEDS: PIPERACILLIN/TAZOBACTAM 4.5 GM in DEXTROSE 5% 100 ML IV SCH ×2 (12:33→19:15)
--- NOTE | 2023-01-02 14:44 | Magnetic Resonance Report ---
MRCP CLINICAL HISTORY: Concern for CBD stone. TECHNIQUE: Utilizing a 1.5 Lyric magnet and dedicated coil, multiplanar, multiecho imaging of the [facility] er abdomen was performed utilizing heavily T2 weighted pulsing sequences without IV contrast. COMPARISON STUDY: Right upper quadrant ultrasound December 09, 2022 and January 01, 2023. FINDINGS: No intra or extrahepatic biliary ductal dilatation is present. The common bile duct measure s 5 mm in caliber. No common bile duct calculi are identified. No hepatic lesions are identified on u nenhanced exam. Unenhanced images of the spleen, adrenal glands and kidneys are normal. There is no h ydronephrosis. A small amount of peripancreatic fluid is noted. The pancreas appears mildly edematous . Fluid extends into the anterior pararenal spaces. There is no peripancreatic fluid collection. The caliber of visualized small and large bowel are normal. Multiple small gallstones within gallbladder noted. The gallbladder is not distended. There is no pericholecystic fluid or stranding. IMPRESSION: 1. No biliary ductal dilatation. No common bile duct calculi identified. 2. Findings suggestive of acute pancreatitis, as described above. 3. Cholelithiasis. No evidence for acute cholecystitis. ACT 112: Negative or not required by law. Electronically signed by: Pawan Victoria M.D. 01/02/2023 2:42 PM
--- NOTE | 2023-01-02 15:08 | Communication Note ---
Date of Service: January 02, 2023 Patient seen and examined at bedside. She reports pain in her right upper quadrant. Discussed with surgery; recommend transfer to hospital with ERCP capabilities as patient will require ERCP prior to laparoscopic cholecystectomy. Discussed with GI; who also recommended transfer. Discussed with triage officer at [facility] Jamie who reviewed the case with Dr. Smith from GI. Recommended to obtain MRCP MRCP results reviewed; no biliary duct dilation and no common bile duct calculi identified. MRCP findings suggestive for acute pancreatitis. Dr. Patel Smith from [facility] GI reviewed the case. He is suspected she passed a stone and subsequently developed gallstone pancreatitis. He recommended lap renea with IOC. If is positive, recommended transfer to [facility] for ERCP. Constitutional: WD/WN, vitals as above, NAD, sitting up in bed, pleasant, conversing easily Respiratory: normal respiratory effort, lungs clear to auscultation, no wheeze, rales, rhonchi. Normal insp/exp effort, no accessory muscle use Cardiovascular: RRR, no murmur, no edema Vessels: no JVD or carotid bruit Chest: normal inspection of chest Abdomen: Tenderness present in right upper quadrant. Bowel sound present. Musculoskeletal: no cyanosis or clubbing, extremities motor strength 5/5 Skin: no rashes, warm and dry normal turgor Neurologic: PERRL, EOMI, accommodation nl, no face palsy, no dysarthria CN's II- XI intact bilaterally and moves all extremities Psychiatric: A+Ox3, euthymic affect
[2023-01-02] MEDS ORDERED: MoRPHine SULFATE 2 MG/ML CARP IV PRN (15:48)
[2023-01-03] MEDS: PIPERACILLIN/TAZOBACTAM 4.5 GM in DEXTROSE 5% 100 ML IV SCH ×3 (04:15→19:10)
--- NOTE | 2023-01-03 06:20 | Surgery Progress Note ---
Date of Service January 03, 2023 Assessment & Plan (1) Abdominal pain: Plan: Less abdominal pain-no other significant changes Check a.m. labs Plan is for laparoscopic cholecystectomy and possible cholangiogram Continue IV antibiotics Admission and Anticipated Discharge Date Admission Date: January 02, 2023 Results & Data Vital Signs (Past 12 Hours) Vital Signs Temp Pulse Resp BP Pulse Ox O2 Del Method 01/02/23 19:21 36.7 C 64 18 134/83 98 Room Air PG Care Time/CCT Total # of Minutes Spent Total Time Spent with Patient: Total time spent is greater than 50% in coordination of care (as documented) at patient's floor/unit and/or counseling patient: Coding Level of Care Code None Diagnoses Abdominal pain R10.9
[2023-01-03 06:46] LABS: Basophils # (auto) 0.02 K/uL (0-0.2); Basophils % (auto) 0.2 %; Eosinophils # (auto) 0.08 K/uL (0-0.50); Hematocrit (blood only) 36.1 % (37.0-47.0); Hemoglobin 11.8 g/dl (12.0-16.0); Immature Granulocytes # (auto) 0.02 K/uL (0.01-0.20); Immature Granulocytes % (auto) 0.2 %; Lymphocytes # (auto) 2.14 K/uL (1.2-3.4); Lymphocytes % (auto) 26.7 %; Mean Corpuscular Hemoglobin 27.2 pg (25.0-34.0); Mean Corpuscular Hgb Conc 32.7 g/dL (32.0-36.0); Mean Corpuscular Volume 83.2 fL (80.0-100.0); Mean Platelet Volume 11.6 fL (9.4-12.4); Monocytes # (auto) 0.52 K/uL (0.11-0.59); Monocytes % (auto) 6.5 %; Neutrophils # (auto) 5.23 K/uL (1.40-6.50); Neutrophils % (auto) 65.4 %; Platelet Count 167 K/uL (130-400); RDW Coefficient of Variation 13.4 % (11.5-14.5); Red Blood Count 4.34 M/uL (4.20-5.40); White Blood Count 8.01 K/ul (4.8-10.8)
[2023-01-03 06:58] LABS: Albumin Globulin Ratio 1.4 (0.9-2); Albumin Level 3.7 gm/dl (3.4-5.0); BUN Creatinine Ratio 10.4 (10-20); Bilirubin Direct 0.2 mg/dl (0-0.2); Bilirubin,Total 1.3 mg/dl (0.2-1.0); Calcium 8.7 mg/dl (8.6-10.3); Creatinine Clr Calc Pharmacy 133.6 ml/min; Est GFR (African American) 142.6 ml/min; Globulin 2.6 gm/dl (2.5-4.0); Magnesium 1.8 mg/dl (1.7-2.4); Potassium 3.5 mmol/L (3.5-5.1); Total Protein 6.3 gm/dl (6.0-8.3)
[2023-01-03] MEDS ORDERED: LIDOCAINE 2% 2 ML VIAL/AMP(20MG/ML) INFIL ONE (11:11)
[2023-01-03] MEDS ORDERED: PROPOFOL IV EMULSION 10 MG/ML 20 ML VIAL IV ONE (11:11)
[2023-01-03] MEDS ORDERED: MIDAZOLAM HCL 1 MG/ML 2ML VIAL ONE (11:12)
[2023-01-03] MEDS ORDERED: ONDANSETRON INJ 2 MG/ML 2 ML VIAL ONE (11:12)
[2023-01-03] MEDS ORDERED: ROCURONIUM BROMIDE 10 MG/ML 5 ML VIAL IV ONE (11:12)
[2023-01-03] MEDS ORDERED: GLYCOPYRROLATE 0.2 MG/ML VIAL ONE (11:12)
[2023-01-03] MEDS ORDERED: fentaNYL citrate PF 100 MCG/2 ML VIAL ONE (11:12)
[2023-01-03] MEDS ORDERED: DEXAMETHASONE SOD INJ 4 MG/ML VIAL ONE (11:12)
[2023-01-03] MEDS ORDERED: NEOSTIGMINE METHYLSULFATE 1 MG/ML 10ML VIAL ONE (11:12)
[2023-01-03] MEDS ORDERED: BUPIVACAINE 0.5 % 5 MG/1 ML MPF 30ML VIAL ONE (12:28)
--- NOTE | 2023-01-03 12:42 | Hospitalist Progress Note ---
Date of Service January 03, 2023 Assessment & Plan (1) Abdominal pain: (2) Biliary colic: (3) Gallstone pancreatitis: Plan Pt to under go lap renea today w or w/o IOC by gen surg. Initial plan was to transfer to [facility] for ERCP; however [facility] recommended MRCP which was negative for CBD dilation or stone. Did reveal acute pancreatitis likely 2/2 gallstone Pt remains NPO continue IV antibiotics IV antiemetics, pain meds CBC unremarkable, LFTS trending down T bili 1.3, AST 129, ALT 398, ALP 114 suspect passage of stone DVT ppx: SCD PCP: Mayuri FULL CODE Pt was seen and examined in collaboration with Dr. Cordero please see addendum Admission and Anticipated Discharge Date Admission Date: January 02, 2023 Supervising Physician Co-Signing Physician Notes Patient seen and examined independently. Discussed with above provider. Patient reports that abdominal pain has improved compared to yesterday. LFTs have trended down. Patient to undergo laparoscopic cholecystectomy with cholangiogram today. Subjective Pt was seen and examined in room 308. Follow up cholecystitis. Pt to under lap renea today with possible IOC. She feels well today. Denies f/c/s, chest pain, sob, n/v/d. Review of Systems Review of Systems: All systems reviewed & are unremarkable except as noted in HPI & below Physical Exam Physical Exam: \Gen: WD/WN, NAD, A&O x3 HEENT: Normocephalic, atraumatic, conjunctivae moist, sclerae anicteric, mucous membranes moist. Lung: Clear to Auscultation bilaterally, no wheezes/rales/rhonchi Heart: Regular rate, regular rhythm, no murmurs, rubs, or gallops Abdomen: Soft, NT, ND +BS x 4 Extremities: No edema Skin: Warm, no rash, negative turgor. Results & Data Results & Data Vital Signs (Past 12 Hours) Vital Signs Temp Pulse Resp BP BP Pulse Ox O2 Del Method 01/03/23 12:14 37.1 C 75 18 132/98 99 Room Air 01/03/23 08:00 Room Air 01/03/23 07:21 36.8 C 69 18 117/75 98 Room Air Laboratory Results Short CBC 01/03/23 Range/Units 05:26 WBC 8.01 (4.8-10.8) K/ul Hgb 11.8 L (12.0-16.0) g/dl Hct 36.1 L (37.0-47.0) % Plt Count 167 (130-400) K/uL BMP 01/03/23 05:26 Sodium 141 Potassium 3.5 Chloride 111 H Carbon Dioxide 23 BUN 7 Creatinine 0.67 Glucose 91 Calcium 8.7 Liver Function 01/03/23 Range/Units 05:26 Total Bilirubin 1.3 H (0.2-1.0) mg/dl Direct Bilirubin 0.2 (0-0.2) mg/dl AST 139 H (13-39) U/L ALT 398 H (7-52) U/L Alkaline Phosphatase 114 H (34-104) U/L Albumin 3.7 (3.4-5.0) gm/dl Medications Administered Current Inpatient Medications Piperacillin Sod/Tazobactam (Sod 4.5 gm/ Dextrose) 120 mls @ 30 mls/hr IV Q8H [facility]; Protocol Stop: 01/12/23 11:59 Last Admin: 01/03/23 12:04 Dose: Not Given Morphine Sulfate (Morphine Sulfate 2 Mg/Ml Carp) 2 mg IV Q4H PRN PRN Reason: Pain Stop: 01/16/23 05:39 Ondansetron HCl (Ondansetron Inj 2 Mg/Ml 2 Ml Vial) 4 mg IV Q6H PRN PRN Reason: Nausea Stop: 02/01/23 05:39
[2023-01-03] MEDS ORDERED: OPTIRAY 320 100ml IV ONE (13:19)
[2023-01-03] MEDS ORDERED: ACETAMINOPHEN 1,000 MG/100 ML VIAL IV ONE (13:33)
--- NOTE | 2023-01-03 13:33 | Post Operative Brief Note ---
PG Immediate Post Op with CF Date of Surgery January 03, 2023 Pre & Post Diagnosis Operation Date: 01/03/23 10:45 Pre-Op Diagnosis: Acute cholecystitis Post-Op Diagnosis: Acute cholecystitis I identified the patient and participated in the time-out.: Yes Procedure Operation Date: 01/03/23 10:45 Actual Procedures p Laparoscopic Cholecystectomy with Cholangiogram(Not Applicable) - Hank Morelos MD, FACS Surgeon Hank Morelos MD, FACS Trigonometry Teacher Nurses Estimated Blood Loss 5 Findings Consistent with Post-Op Diagnosis Mild gallbladder edema, cholangiogram showed no filling defects in the common bile duct with good flow into the duodenum Specimens Specimen Description: A. Gallbladder and contents
[2023-01-03] MEDS ORDERED: ONDANSETRON INJ 2 MG/ML 2 ML VIAL IV PRN (13:52)
[2023-01-03] MEDS ORDERED: ePHEDrine sulfate 50 MG/ML AMP IV PRN (13:52)
[2023-01-03] MEDS ORDERED: fentaNYL citrate PF 100 MCG/2 ML VIAL IV PRN (13:52)
[2023-01-03] MEDS ORDERED: HYDROmorphone INJ 2 MG/ML SYR/VIAL IV PRN (13:52)
[2023-01-03] MEDS ORDERED: PROMETHAZINE HCL 12.5 MG in SODIUM CHLORIDE 0.9% 50 ML IV PRN (13:52)
[2023-01-03] MEDS ORDERED: ATROPINE SULFATE 0.1 MG/ML 10ML SYR IV PRN (13:52)
--- NOTE | 2023-01-03 13:55 | Anesthesiology Consultation ---
Date of Service January 03, 2023 Assessment & Plan Chart Review Chart Review: Acceptable Risk for Surgery Consults Requested none History Surgery Operation Date: 01/03/23 10:45 Proposed Procedures p Laparoscopic Cholecystectomy with Cholangiogram - Hank Morelos MD, FACS Height/Weight Height: 5 ft 2 in Weight: 88.3 kg Allergies Allergy/AdvReac Type Severity Reaction Status Date / Time No Known Allergies Allergy Unverified 12/20/22 09:20 Medications Home Medications Medication Instructions Recorded Confirmed Last Taken ibuprofen 600 mg tablet 600 mg PO Q6H PRN pain #30 tabs 11/05/22 01/02/23 2 Weeks Ago ~12/19/22 oxycodone-acetaminophen 5 mg-325 1 tab PO Q4H PRN pain #10 tabs 11/05/22 01/02/23 01/01/23 mg tablet (Percocet) PNV-iron 29 mg-folic acid 1 1 pkg PO DAILY 12/08/22 01/02/23 12/29/22 mg-omega3 250 mg-dha 200mg oral combo pack (Complete DHA) Active Medications Generic Name Dose Route Start Last Admin Trade Name Freq PRN Reason Stop Dose Admin Piperacillin Sod/Tazobactam 120 mls @ 30 mls/hr 01/02/23 12:00 01/03/23 12:04 Sod 4.5 gm/ Dextrose IV 01/12/23 11:59 Not Given Q8H [facility] Protocol NPO Date Last Intake of Fluids: 01/03/23 Time Last Intake of Fluids: 04:00 Last Intake of Fluids Comment: sips of water with meds Date Last Intake of Solids: 01/02/23 Time Last Intake of Solids: 18:00 Past Medical History Medical History No known health problems Past Surgical History Surgical History History of section (11/03/22) Social History Smoking Status: Never smoker tobacco type: cigarettes Smoking cigarettes per day: 8 STICKS OF CIGARETTES PER DAY. Do You Dip or Chew Tobacco: No Hx Alcohol Use: Yes Alcohol type: beer alcohol intake frequency: holidays/special occasions only Hx Substance Use: No substance use type: does not use Physical Exam Vital Signs Last Vital Signs Temp 37.1 C 01/03/23 12:14 Pulse 75 01/03/23 12:14 Resp 18 01/03/23 12:14 BP 132/98 01/03/23 12:14 Pulse Ox 99 01/03/23 12:14 O2 Del Method Room Air 01/03/23 12:14 O2 Flow Rate 0 01/02/23 03:53 Testing Laboratory Results 01/03/23 05:26 01/03/23 05:26
--- NOTE | 2023-01-03 13:56 | Operative Report (OR) ---
DATE OF OPERATION: 01/03/2023. NAME OF OPERATION: Laparoscopic cholecystectomy with intraoperative cholangiogram. PREOPERATIVE DIAGNOSIS: Gallstone pancreatitis. POSTOPERATIVE DIAGNOSIS: Gallstone pancreatitis. STAFF SURGEON: Hank Morelos MD. ANESTHESIA: General. DESCRIPTION OF PROCEDURE: The patient was brought in the operating room, placed on the operating tab le in supine position. Her abdomen was prepped and draped in the usual fashion. Pneumatic stockings and orogastric tube were placed. 0.5% plain Marcaine was used to anesthetize all incisions. Incisi on was made above the umbilicus, carrying dissection down to the fascia, placing a Veress needle prod ucing pneumoperitoneum. Under visualization after 11 mm port placed, three 5 mm ports were placed, o ne cephalad and two laterally. Gallbladder was grasped and retracted. It was distended. It was asp irated of bile. Dissection carried out to the lori hepatis, identifying the cystic duct, which was clipped next to the gallbladder and then partially opened. Cholangiography performed with good flow into the duodenum and no filling defects noted. Cystic duct was clipped and transected. Cystic geovani ry identified, clipped and transected and the gallbladder dissected away from the liver bed in the us ual fashion. At this point, gallbladder was placed into an Endobag and removed through the umbilical site. All ports were then removed. Fascia at the umbilicus closed using 0 Vicryl suture. The skin was reapproximated using subcuticular 4-0 Monocryl with Dermabond. The patient was transferred to r ecovery room in stable condition. Job ID: [id number]
--- NOTE | 2023-01-03 14:23 | Anesthesiology Progress Note ---
Date of Service January 03, 2023 Anesthesia Post Procedure Vital Signs Vital Signs: Temp Pulse Pulse Pulse Resp BP BP 01/03/23 14:20 36.5 C 71 18 149/77 H 01/03/23 14:10 68 12 152/86 H 01/03/23 14:00 63 15 151/88 H 01/03/23 13:50 69 20 152/85 H 01/03/23 13:43 36.4 C L 75 12 139/91 01/03/23 12:14 37.1 C 75 18 132/98 01/03/23 08:00 01/03/23 07:21 36.8 C 69 18 117/75 01/02/23 19:21 36.7 C 64 18 134/83 01/02/23 16:06 36.6 C 60 14 118/75 Pulse Ox O2 Del Method O2 Flow Rate 01/03/23 14:20 98 Room Air 01/03/23 14:10 98 Room Air 01/03/23 14:00 100 Oxymask 4 01/03/23 13:50 100 Oxymask 4 01/03/23 13:43 100 Oxymask 4 01/03/23 12:14 99 Room Air 01/03/23 08:00 Room Air 01/03/23 07:21 98 Room Air 01/02/23 19:21 98 Room Air 01/02/23 16:06 98 Room Air Pain Intensity Abdomen: Pain Intensity: 4 Transfer of Care Handoff Completed per policy Notes Mental Status: alert / awake / arousable and participated in evaluation Patient Amnestic to Procedure: Yes Nausea / Vomiting: adequately controlled Pain: adequately controlled Airway Patency, RR, SpO2: stable & adequate BP & HR: stable & adequate Hydration State: stable & adequate Anesthetic Complications: no major complications apparent
[2023-01-03] MEDS ORDERED: HYDROCODONE/ACETAMOPHEN 5/325MG TAB PO PRN (14:25)
--- NOTE | 2023-01-03 14:34 | Fluoroscopy Report ---
[place] cholangiogram OR CLINICAL HISTORY: LAP LATRELL COMPARISON STUDY: Right upper quadrant ultrasound January 01, 2023. MRCP January 02, 2023. FLUOROSCOPY TIME: 23 seconds. Ka, r: 3.5871 mGy FLUOROSCOPIC IMAGES: 3 FINDINGS: Fluoroscopy was provided during intraoperative cholangiogram. Opacification of the common b ile duct is adequate. No filling defects are identified to suggest choledocholithiasis. There is opac ification of the duodenum. Caliber of the common bile duct is normal. IMPRESSION: No filling defects to suggest choledocholithiasis. ACT 112: Negative or not required by law. Electronically signed by: Pawan Victoria M.D. 01/03/2023 2:33 PM
[2023-01-04] MEDS: PIPERACILLIN/TAZOBACTAM 4.5 GM in DEXTROSE 5% 100 ML IV SCH (04:05)
[2023-01-04 05:48] LABS: Basophils # (auto) 0.01 K/uL (0-0.2); Basophils % (auto) 0.1 %; Eosinophils # (auto) 0.01 K/uL (0-0.50); Eosinophils % (auto) 0.1 %; Hematocrit (blood only) 35.8 % (37.0-47.0); Hemoglobin 12.2 g/dl (12.0-16.0); Immature Granulocytes # (auto) 0.03 K/uL (0.01-0.20); Immature Granulocytes % (auto) 0.3 %; Lymphocytes % (auto) 16.3 %; Mean Corpuscular Hemoglobin 27.7 pg (25.0-34.0); Mean Corpuscular Hgb Conc 34.1 g/dL (32.0-36.0); Mean Corpuscular Volume 81.4 fL (80.0-100.0); Mean Platelet Volume 11.3 fL (9.4-12.4); Monocytes # (auto) 0.68 K/uL (0.11-0.59); Monocytes % (auto) 6.1 %; Neutrophils # (auto) 8.53 K/uL (1.40-6.50); Neutrophils % (auto) 77.1 %; Platelet Count 200 K/uL (130-400); RDW Coefficient of Variation 13.2 % (11.5-14.5); RDW Standard Deviation 38.8 fL (36.4-46.3); White Blood Count 11.06 K/ul (4.8-10.8)
[2023-01-04 06:08] LABS: Alanine Aminotransferase 266 U/L (7-52); Albumin Globulin Ratio 1.4 (0.9-2); Albumin Level 3.8 gm/dl (3.4-5.0); Alkaline Phosphatase 102 U/L (34-104); Anion Gap 7 (3-11); Aspartate Aminotransferase 46 U/L (13-39); BUN Creatinine Ratio 12.3 (10-20); Bilirubin Direct 0.1 mg/dl (0-0.2); Bilirubin,Total 0.6 mg/dl (0.2-1.0); Blood Urea Nitrogen 7 mg/dl (6-23); Calcium 8.7 mg/dl (8.6-10.3); Carbon Dioxide 22 mmol/L (21-32); Chloride 110 mmol/L (98-107); Creatinine Clr Calc Pharmacy 157.1 ml/min; Est GFR (African American) > 150.0 ml/min; Est GFR (Non-African American) 129.8 ml/min; Globulin 2.8 gm/dl (2.5-4.0); Glucose 157 mg/dl (70-99(Fasting)); Potassium 3.8 mmol/L (3.5-5.1); Sodium 139 mmol/L (136-145); Total Protein 6.6 gm/dl (6.0-8.3)
--- NOTE | 2023-01-04 07:47 | Surgery Progress Note ---
Date of Service January 04, 2023 Assessment & Plan (1) Hx laparoscopic cholecystectomy: Plan: Patient doing well Liver function studies are normalizing Plan for discharge home Discharge instructions complete Prescription for pain medication sent to the pharmacy We will follow-up in the office in 1 to 2 weeks Admission and Anticipated Discharge Date Admission Date: January 02, 2023 Results & Data Vital Signs (Past 12 Hours) Vital Signs Temp Pulse Resp BP Pulse Ox O2 Del Method 01/04/23 07:28 36.9 C 68 16 126/73 97 Room Air 01/04/23 03:01 36.7 C 72 16 124/77 98 Room Air 01/03/23 22:24 37 C 70 16 117/69 98 Room Air PG Care Time/CCT Total # of Minutes Spent Total Time Spent with Patient: Total time spent is greater than 50% in coordination of care (as documented) at patient's floor/unit and/or counseling patient: Coding Level of Care Code 73472 Post Operative Follow-Up Diagnoses Hx laparoscopic cholecystectomy Z90.49
--- NOTE | 2023-01-04 08:44 | Discharge Summary ---
Discharge Summary Date of Service January 04, 2023 Notes For Next Care Provider Patient with chronic cholecystitis s/p Lap Latrell. Initial concern was for choledocholithiasis; however intraoperative cholangiogram negative. Treated with Pre op antibiotics with IV zosyn. Tolerating diet POD #1 and being discharged to home. Medication Changes From Visit None Admission HPI Per Admitting Provider HISTORY OF PRESENT ILLNESS: A 22-year-old female with past medical history significant for obesity during , abnormal glucose testing during , tobacco use, history of gallstones, presented with abdominal pain. The patient says she was found to have gallstones during . She had a done at the end of October and she saw general surgery on 12/20/2022 for gallstones. Plan for doing surgery after the surgical site is healed properly. She has a followup appointment with [facility] on 01/04/2023. She came to the ER on 01/01/2023, yesterday evening with epigastric pain radiating to the right upper quadrant and right shoulder region, and labs showed elevated LFTs. Gallbladder scan done, which showed gallstone, but does not show any evident cholecystitis and lipase was normal. Urine test was negative. The patient advised for admission to the hospital for GI evaluation and surgical evaluation.The patient was given fluids, refused antiemetics and anti-analgesics and she wanted to go home to take care of her child. Was advised to come in the morning and the patient is now currently back in the ER with same symptoms, abdominal pain in the epigastric region radiating to the back and to the right shoulder region, 7/10 in severity, associated with nausea and vomiting. She says she vomited couple of times since she came to the ER. Denies any fever or chills. No diarrhea or constipation. Normal bladder movements. No chest pain, no shortness of breath, no cough, no headaches, no blurred visions, no earache, no runny nose, no sore throat, hemodynamically stable, resting comfortably. Admission Exam Per Admitting Provider PHYSICAL EXAMINATION: GENERAL: The patient is obese, not in acute distress. VITAL SIGNS: Temperature 36.6, pulse 74, respiratory rate 16, blood pressure 124/74, oxygen 96% on room air. HEENT: Pupils equal, round and reactive to light. Oral mucosa moist. NECK: No JVD, no neck masses. CARDIOVASCULAR: S1 and S2 heard. Regular rate and rhythm. No murmur, no gallop. RESPIRATORY SYSTEM: Normal AP diameter. No accessory muscle use. No wheezing or crackles. ABDOMEN: Soft, bowel sounds present. Tenderness in the epigastric region and guarding present. No distention. CENTRAL NERVOUS SYSTEM: Alert and oriented. Speech is clear. No facial droop. Obeys commands. Moves extremities. EXTREMITIES: No edema, no erythema. Principal Dx & Hospital Course #1 = Principal Diagnosis (1) Abdominal pain: (2) Biliary colic: (3) Gallstone pancreatitis: Plan This is a 22-year-old female who presented to ED with signs and symptoms of biliary colic. Initial concern was for choledocholithiasis in setting of elevated AST, ALT and total bilirubin. AST peaked at 900 and ALT peaked at 789. Patient underwent MRCP which was negative for choledocholithiasis but did show findings of gallstone pancreatitis. Initially patient was going to be transferred to [facility] for ERCP but secondary to negative MRCP it was felt that her symptoms are likely as result of passage of gallstone. She did undergo laparoscopic cholecystectomy and intraoperative cholangiogram was performed which was negative for filling defect. On day of discharge LFTs continue to downtrend with AST 46 and ALT 266. She is free of abdominal pain on day of discharge and she is tolerating diet. She denies any nausea or vomiting. Patient is 8 weeks post and her incision appears to be healing well with a very small area that appears nonhealed. She will follow-up as outpatient with primary care provider as well as [facility]. Discharge Exam Gen: WD/WN, NAD, A&O x3 HEENT: Normocephalic, atraumatic, conjunctivae moist, sclerae anicteric, mucous membranes moist. Lung: Clear to Auscultation bilaterally, no wheezes/rales/rhonchi Heart: Regular rate, regular rhythm, no murmurs, rubs, or gallops Abdomen: Soft, NT, ND +BS x 4, lap latrell incisions x 4 cdi, c section incision intact no erythema Extremities: No edema Skin: Warm, no rash, negative turgor. Updated Medication List Medication Instructions Recorded Confirmed Type ibuprofen 600 mg tablet 600 mg PO Q6H PRN pain #30 tabs 11/05/22 01/02/23 Rx oxycodone-acetaminophen 5 mg-325 1 tab PO Q4H PRN pain #10 tabs 11/05/22 01/02/23 Rx mg tablet (Percocet) PNV-iron 29 mg-folic acid 1 1 pkg PO DAILY 12/08/22 01/02/23 History mg-omega3 250 mg-dha 200mg oral combo pack (Complete DHA) hydrocodone 5 mg-acetaminophen 325 1 tab PO Q4H PRN pain #30 tabs 01/04/23 Rx mg tablet Hospital Stay Data Consultations 01/02/23 04:22 ED Decision to Admit Stat 01/02/23 08:00 Consult Gastroenterology Routine Consult General Surgery Routine Procedures Performed Operation Date: 01/03/23 10:45 Actual Procedures p Laparoscopic Cholecystectomy with Cholangiogram(Not Applicable) - Hank Morelos MD, FACS Diagnostic Imagining Performed Cholangiopancreatography MRI 01/02/23 11:35 MRCP CLINICAL HISTORY: Concern for CBD stone. TECHNIQUE: Utilizing a 1.5 Lyric magnet and dedicated coil, multiplanar, multiecho imaging of the upper abdomen was performed utilizing heavily T2 weighted pulsing sequences without IV contrast. COMPARISON STUDY: Right upper quadrant ultrasound December 09, 2022 and January 01, 2023. FINDINGS: No intra or extrahepatic biliary ductal dilatation is present. The common bile duct measures 5 mm in caliber. No common bile duct calculi are identified. No hepatic lesions are identified on unenhanced exam. Unenhanced images of the spleen, adrenal glands and kidneys are normal. There is no hydronephrosis. A small amount of peripancreatic fluid is noted. The pancreas appears mildly edematous. Fluid extends into the anterior pararenal spaces. There is no peripancreatic fluid collection. The caliber of visualized small and large bowel are normal. Multiple small gallstones within gallbladder noted. The gallbladder is not distended. There is no pericholecystic fluid or stranding. IMPRESSION: 1. No biliary ductal dilatation. No common bile duct calculi identified. 2. Findings suggestive of acute pancreatitis, as described above. 3. Cholelithiasis. No evidence for acute cholecystitis. ACT 112: Negative or not required by law. Electronically signed by: Pawan Victoria M.D. 01/02/2023 2:42 PM Cholangiogram,Operative 01/03/23 00:00 [place] cholangiogram OR CLINICAL HISTORY: LAP LATRELL COMPARISON STUDY: Right upper quadrant ultrasound January 01, 2023. MRCP January 02, 2023. FLUOROSCOPY TIME: 23 seconds. fred Velez: 3.5871 mGy FLUOROSCOPIC IMAGES: 3 FINDINGS: Fluoroscopy was provided during intraoperative cholangiogram. Opacification of the common bile duct is adequate. No filling defects are identified to suggest choledocholithiasis. There is opacification of the duodenum. Caliber of the common bile duct is normal. IMPRESSION: No filling defects to suggest choledocholithiasis. ACT 112: Negative or not required by law. Electronically signed by: Pawan Victoria M.D. 01/03/2023 2:33 PM Pending Results Patient Have Any Pending Studies at Discharge: No Discharge Instructions Given to Patient (Per Discharging Provider) SPECIAL CARE INSTRUCTIONS: * Cover incisions and change daily for comfort/drainage. May leave uncovered with Dermabond * * Avoid constipation- * May Use Senokot S and Milk of Magnesium twice daily as directed on the package * May use ibuprofen for pain as tolerated. * Expect some swelling and bruising. Call your doctor if: * Temperature above 101 degrees * Pain not relieved by pain medicine ordered * There is increased drainage or redness from any incision * You have any unanswered questions or concerns [phone]. FOLLOW UP VISIT: If not already scheduled, please call the office for a follow-up visit. For 2 weeksno sutures to remove OFFICE PHONE NUMBER: Dr. Morelos Office Total Time Total Time Spent Total Time Spent (In Minutes): 35 minutes Supervising Physician Co-Signing Physician Notes Patient seen and examined independently. Discussed with above provider. Tolerating regular diet after the surgery Denies pain or discomfort. Labs reviewed; total bilirubin, liver enzymes trended down Patient cleared for discharge by surgery.
== END 2023-01-04 09:25 | disposition home or self-care (01) | DRG 417 ==
LOC: ED 03:52 → 3E 04:56